=== PATIENT | male | born 1940 | race Asian ===

== ENCOUNTER 2019-07-02 09:37 | Inpatient (IN) | payer MEDICARE, MEDICAID ==
[~2019-07-02] VITALS: Ht 172.7 cm; Wt 58.5 kg
[2019-07-02] MEDS ORDERED: LORazepam Inj 2mg/ml 1ml IV ONE ×2 (09:45→13:00)
[2019-07-02 09:50] VITALS: BP 136/52
--- NOTE | 2019-07-02 09:50 | NUR ---
ED Nurse Note: Patient brought in by ambulance from [facility] due to SOB. pt was having severe SOB upon arrival but per EMS, severe SOB just started 5 minutes prior to arrival and pt was stable until then. pt aao x1 to name only and having agitation, confusion, restlessness. h/o CVA and Rt side weakness noted. Rt hand edema noted. per pt, he broke it last year but pt is aao x1 and unable to provide more details.
--- NOTE | 2019-07-02 09:50 | NUR ---
ED Nurse Note: unable to do ekg at this time due to pt's behavior. will try after med give.
--- NOTE | 2019-07-02 09:55 | NUR ---
ED Nurse Note: ERMD at bedside and ordered Bipap. pt is in gown and on diagnostic cardiac sonographer. tachycardia, SOB, labored breathing and restlessness noted.
--- NOTE | 2019-07-02 10:00 | NUR ---
ED Nurse Note: pt refused Bipap. pt took it out, threw it out, and screamed. no violent behavior but severe agitation.
--- NOTE | 2019-07-02 10:13 | Diagnostic Imaging Report ---
EXAM: XR Chest, 1 View CLINICAL HISTORY: SOB TECHNIQUE: Frontal view of the chest. COMPARISON: No relevant prior studies available. FINDINGS: Lungs: Unremarkable. No consolidation. Pleural space: Unremarkable. No pneumothorax. Heart: Borderline cardiomegaly. Mediastinum: Aortic ossification. Bones/joints/soft tissues: Operative changes to the soft tissues of the neck.. IMPRESSION: No evidence of acute pulmonary disease
--- NOTE | 2019-07-02 10:15 | NUR ---
ED Nurse Note: per BRADLEY, Ativan IM is ok due to severe agitation and confusion.
[2019-07-02] MEDS ORDERED: AMLODIPINE BESYL5 MG ORAL (10:39)
[2019-07-02] MEDS ORDERED: METOPROLOL TART50 MG ORAL (10:39)
[2019-07-02] MEDS ORDERED: ATIVAN1 MG ORAL (10:39)
[2019-07-02] MEDS ORDERED: DOCUSATE SODIU100 MG ORAL (10:39)
[2019-07-02] MEDS ORDERED: INSULIN LI100 UNIT/1 SQ (10:39)
[2019-07-02] MEDS ORDERED: FUROSEMIDE40 MG ORAL (10:39)
[2019-07-02] MEDS ORDERED: ASPIR 8181 MG ORAL (10:39)
[2019-07-02] MEDS ORDERED: MAGNESIUM OXID400 M1 ORAL (10:39)
[2019-07-02] MEDS ORDERED: HYDROCORTISONE28 G2 TP (10:39)
[2019-07-02] MEDS ORDERED: B COMPLEX1 EACH ORAL (10:39)
[2019-07-02] MEDS ORDERED: LANTUS SOL100 UNIT/1 SUBQ (10:39)
[2019-07-02] MEDS ORDERED: TRAMADOL HCL50 MG ORAL (10:39)
[2019-07-02] MEDS ORDERED: METAMUCIL PACK1 EAC1 ORAL (10:39)
[2019-07-02] MEDS ORDERED: FISH OIL CAP1000 MG ORAL (10:39)
[2019-07-02] MEDS ORDERED: MIRALAX17 GM ORAL (10:39)
[2019-07-02] MEDS ORDERED: ZETIA10 MG ORAL (10:39)
[2019-07-02] MEDS ORDERED: MULTI VITAMIN1 EACH ORAL (10:39)
[2019-07-02] MEDS ORDERED: ZINC SULFATE220 M1 ORAL (10:39)
[2019-07-02] MEDS ORDERED: ELIQUIS2.5 MG PO (10:39)
[2019-07-02] MEDS ORDERED: ATORVASTATIN CA40 MG ORAL (10:39)
--- NOTE | 2019-07-02 10:42 | NUR ---
ED Nurse Note: pt is calmer but still slightly tachycardia at 101-102/min
[2019-07-02 11:05] LABS: BASOPHILS % (AUTO) 0.4 % (0.0-2.0); EOSINOPHILS % (AUTO) 0.2 % (0.0-3.0); HEMATOCRIT 38.5 % (42.0-52.0); HEMOGLOBIN 13.1 G/DL (14.2-18.0); LYMPHOCYTES % (AUTO) 11.9 % (20.0-45.0); MEAN CORPUSCULAR VOLUME 87 FL (80-99); MONOCYTES % (AUTO) 6.6 % (1.0-10.0); NEUTROPHILS % (AUTO) 80.9 % (45.0-75.0); PLATELET COUNT 183 K/UL (150-450); RED CELL DISTRIBUTION WIDTH 12.5 % (11.6-14.8); WHITE BLOOD COUNT 6.9 K/UL (4.8-10.8)
[2019-07-02 11:14] LABS: ANION GAP 15 mmol/L (5-15); BLOOD UREA NITROGEN 21 mg/dL (7-18); CALCIUM 9.4 MG/DL (8.5-10.1); CARBON DIOXIDE 25 MMOL/L (21-32); CHLORIDE 101 MMOL/L (98-107); CREATININE 1.5 MG/DL (0.55-1.30); POTASSIUM 3.4 MMOL/L (3.5-5.1); SODIUM 140 MMOL/L (136-145)
--- NOTE | 2019-07-02 11:14 | Emergency Room Report ---
History of Present Illness General Chief Complaint: Upper Respiratory Illness Source: Medical Record Present Illness HPI 78-year-old male presents ED for shortness of breath. resides in SNF. Started today. Per EMS O2 sats low. Given breathing treatments. Arrival patient appears anxious. States he wants to go to [facility]. Denies chest pain. Was started on antibiotics yesterday for presumed pneumonia. Denies fevers or chills. Denies sick contacts or recent travel. No other aggravating relieving factors. Denies any other associated symptoms COVID-19 risk:Contact w/high r: No COVID-19 risk:Travel to affect: No Has patient experienced james: No Allergies: Coded Allergies: No Known Allergies (Unverified , 07/02/19) Patient History Past Medical History: CHF, AFib, CVA/TIA Past Surgical History: none Pertinent Family History: none Social History: Denies: smoking, alcohol use, drug use Immunizations: UTD Reviewed Nursing Documentation: PMH: Agreed; PSxH: Agreed Nursing Documentation-PMH Past Medical History: No History, Except For Hx Cardiac Problems: Yes - HF, hyperlipidemia, a-fib Hx Pacemaker: Yes Hx Diabetes: Yes Hx Cerebrovascular Accident: Yes - right side weakness Review of Systems All Other Systems: negative except mentioned in HPI Physical Exam Vital Signs Date Time Temp Pulse Resp B/P (MAP) Pulse Ox O2 Delivery O2 Flow Rate FiO2 07/02/19 09:37 98.8 62 20 122/50 (74) 100 Room Air 07/02/19 09:50 3.0 Sp02 EP Interpretation: reviewed, normal General Appearance: alert, GCS 15, non-toxic, mild distress Head: normocephalic, atraumatic Eyes: bilateral eye normal inspection, bilateral eye PERRL ENT: hearing grossly normal, normal pharynx, no angioedema, normal voice Neck: full range of motion, supple/symm/no masses Respiratory: chest non-tender, lungs clear, normal breath sounds, speaking full sentences Cardiovascular #1: regular rate, rhythm, no edema Cardiovascular #2: 2+ carotid (R), 2+ carotid (L), 2+ radial (R), 2+ radial (L) , 2+ dorsalis pedis (R), 2+ dorsalis pedis (L) Gastrointestinal: normal bowel sounds, non tender, soft, non-distended, no guarding, no rebound Rectal: deferred Genitourinary: normal inspection, no CVA tenderness Musculoskeletal: back normal, normal range of motion, gait/station normal, non- tender Neurologic: alert, motor strength/tone normal, oriented x3, sensory intact, responsive, speech normal Psychiatric: judgement/insight normal, memory normal, no suicidal/homicidal ideation, anxious Reflexes: 3+ bicep (R), 3+ bicep (L), 3+ tricep (R), 3+ tricep (L), 3+ knee (R) , 3+ knee (L) Skin: other - see nursing skin notes Lymphatic: no adenopathy Medical Decision Making Diagnostic Impression: Primary Impression: Respiratory distress Additional Impression: Elevated troponin ER Course Hospital Course 78-year-old male presents ED complaining of shortness of breath, respiratroy disterss Differential diagnoses include: WI/unstable angina, contusion, muscle strain, PTX, rib fracture Clinical course Patient placed on stretcher. on night monitor. After initial history and physical I ordered labs, EKG, chest x-ray, BIPAP, ativan Refused BiPAP labs reviewed- no leukocytosis, hemoglobin/hematocrit stable, BUN/creatinine elevated, glucose 327, troponins 0.216, BNP greater than 3000, doppler US - negative for DVT Chest x-ray- no acute process EKG - NSr, no acute ischemic changes interpreted by me Antibiotics given. patient resting comfortably after ativan. given aspirin. given insulin Case discussed with Dr. Brunson and he agreed to accept the patient to his service for further care and support I. I feel this is a highly complex case requiring extensive working including EKG/Rhythm strip, Xray/CT/US, Blood/urine lab work, repeat exams while in ED, and administration of strong opiates/narcotics for pain control, admission to hospital or close patient follow up. Diagnosis - respiratory distress, elevated troponin admitted to telemetry in serious condition Labs Test 07/02/19 10:30 07/02/19 11:15 07/02/19 12:25 White Blood Count 6.9 K/UL (4.8-10.8) Red Blood Count 4.40 M/UL (4.70-6.10) Hemoglobin 13.1 G/DL (14.2-18.0) Hematocrit 38.5 % (42.0-52.0) Mean Corpuscular Volume 87 FL (80-99) Mean Corpuscular Hemoglobin 29.7 PG (27.0-31.0) Mean Corpuscular Hemoglobin Concent 34.0 G/DL (32.0-36.0) Red Cell Distribution Width 12.5 % (11.6-14.8) Platelet Count 183 K/UL (150-450) Mean Platelet Volume 7.6 FL (6.5-10.1) Neutrophils (%) (Auto) 80.9 % (45.0-75.0) Lymphocytes (%) (Auto) 11.9 % (20.0-45.0) Monocytes (%) (Auto) 6.6 % (1.0-10.0) Eosinophils (%) (Auto) 0.2 % (0.0-3.0) Basophils (%) (Auto) 0.4 % (0.0-2.0) Sodium Level 140 MMOL/L (136-145) Potassium Level 3.4 MMOL/L (3.5-5.1) Chloride Level 101 MMOL/L (98-107) Carbon Dioxide Level 25 MMOL/L (21-32) Anion Gap 15 mmol/L (5-15) Blood Urea Nitrogen 21 mg/dL (7-18) Creatinine 1.5 MG/DL (0.55-1.30) Estimat Glomerular Filtration Rate 45.5 mL/min (>60) Glucose Level 327 MG/DL (74-106) Lactic Acid Level 3.50 mmol/L (0.4-2.0) 2.10 mmol/L (0.66-2.22) Calcium Level 9.4 MG/DL (8.5-10.1) Total Bilirubin 0.8 MG/DL (0.2-1.0) Aspartate Amino Transf (AST/SGOT) 24 U/L (15-37) Alanine Aminotransferase (ALT/SGPT) 28 U/L (12-78) Alkaline Phosphatase 84 U/L (46-116) Troponin I 0.216 ng/mL (0.000-0.056) Pro-B-Type Natriuretic Peptide 3372 pg/mL (0-125) Total Protein 6.8 G/DL (6.4-8.2) Albumin 3.7 G/DL (3.4-5.0) Globulin 3.1 g/dL Albumin/Globulin Ratio 1.2 (1.0-2.7) Urine Color Pale yellow Urine Appearance Clear Urine pH 7 (4.5-8.0) Urine Specific [place] 1.010 (1.005-1.035) Urine Protein 2+ (NEGATIVE) Urine Glucose (UA) 4+ (NEGATIVE) Urine Ketones Negative (NEGATIVE) Urine Blood 2+ (NEGATIVE) Urine Nitrite Negative (NEGATIVE) Urine Bilirubin Negative (NEGATIVE) Urine Urobilinogen Normal MG/DL (0.0-1.0) Urine Leukocyte Esterase Negative (NEGATIVE) Urine RBC 5-10 /HPF (0 - 0) Urine WBC 0-2 /HPF (0 - 0) Urine Squamous Epithelial Cells None /LPF (NONE/OCC) Urine Bacteria Occasional /HPF (NONE) EKG Diagnostic Results Rate: normal Rhythm: NSR ST Segments: no acute changes ASA given to the pt in ED: Yes Rhythm Strip Diag. Results EP Interpretation: yes Rhythm: NSR, no PVC's, no ectopy Chest X-Ray Diagnostic Results Chest X-Ray Diagnostic Results : Chest X-Ray Ordered: Yes # of Views/Limited/Complete: 1 View Indication: Shortness of Breath EP Interpretation: Yes Interpretation: no consolidation, no effusion, no pneumothorax, no acute cardiopulmonary disease Impression: No acute disease Electronically Signed by: Electronically signed by Delon Floyd MD Last Vital Signs Date Time Temp Pulse Resp B/P (MAP) Pulse Ox O2 Delivery O2 Flow Rate FiO2 07/02/19 09:50 122 18 Nasal Cannula 3.0 07/02/19 09:50 98.8 136/52 100 Status: improved Disposition: ADMITTED INPATIENT Condition: Serious Referrals: Bj Brunson MD (PCP) Delon Floyd MD Jul 02, 2019 11:14
[2019-07-02 11:25] LABS: ALANINE AMINOTRANSFERASE 28 U/L (12-78); ALBUMIN 3.7 G/DL (3.4-5.0); ALBUMIN/GLOBULIN RATIO 1.2 (1.0-2.7); ALKALINE PHOSPHATASE 84 U/L (46-116); ASPARTATE AMINO TRANSFERASE 24 U/L (15-37); BILIRUBIN,TOTAL 0.8 MG/DL (0.2-1.0)
[2019-07-02 11:56] LABS: APPEARANCE,URINE CLEAR; BILIRUBIN, URINE NEGATIVE (NEGATIVE); COLOR,URINE PALE YELLOW; GLUCOSE, URINE (UA) 4+ (NEGATIVE); KETONES,URINE NEGATIVE (NEGATIVE); LEUKOCYTE ESTERASE ,URINE NEGATIVE (NEGATIVE); NITRITE,URINE NEGATIVE (NEGATIVE); PH,URINE 7 (4.5-8.0); PROTEIN,URINE 2+ (NEGATIVE); UROBILINOGEN,URINE NORMAL MG/DL (0.0-1.0)
--- NOTE | 2019-07-02 12:58 | NUR ---
ED Nurse Note: report given to SUAD Franklin
[2019-07-02] MEDS ORDERED: Insulin Human Regular 100units/ml 3ml IV ONE (13:00)
--- NOTE | 2019-07-02 13:20 | NUR ---
NURSE NOTES: pt admitted to tele unit in stable condition. hvac operations technician on pt is not complaining of any chest pain or SOB. Bed in lowest position and locked. Rails up x2 bed alarm on for safety. pt very agitated wanting to go home and keep trying to get out of bed. V/s 151/93 HR 99 R 20 T 96.6. belonging sheet was verified by charge nurse. pt unable to sign for belonging. Waiting for doctor's orders.
--- NOTE | 2019-07-02 13:34 | NUR ---
ED Nurse Note: pt transferred to telemetry unit with 1 RN and 1 CARPENTER ASSEMBLER with security monitor on in stable condition.
--- NOTE | 2019-07-02 14:40 | NUR ---
RESPIRATORY NOTE: ABG was placed on hold by MARGARETTE Floyd
[2019-07-02] MEDS ORDERED: LORazepam Inj 2mg/ml 1ml IV SCH (15:00)
[2019-07-02] MEDS ORDERED: Albuterol/Ipratropium 3ml neb HHN PRN (15:45)
[2019-07-02] MEDS: NovoLOG Insulin Flexpen SUBQ SCH ×2 (16:30→21:00)
[2019-07-02] MEDS: Docusate 100mg cap ORAL SCH (18:37)
[2019-07-02] MEDS: Eliquis 2.5mg tablet ORAL SCH (18:37)
--- NOTE | 2019-07-02 18:43 | NUR ---
NURSE NOTES: notified doct Boy pt is tachycardic 130-150. Waiting for new orders
--- NOTE | 2019-07-02 18:47 | NUR ---
NURSE NOTES: reported to doctor Migue pt is very agitated and she ordered Risperdal po 1mg QHS, and she is ok with Ativan 1mg po q 4hrs that doct. Brunson has ordered.
--- NOTE | 2019-07-02 19:29 | NUR ---
HAND-OFF: Report given to Fern/SUAD pt is in bed starting to get agitated. Pt relaxes when Azeri relaxing music is playing.
--- NOTE | 2019-07-02 19:47 | NUR ---
NURSE NOTES: Received report from Noemi Monsalve RN. Pt is in stable condition.
[2019-07-02 20:00] VITALS: BP 153/99
[2019-07-02] MEDS: Atorvastatin 80mg tab ORAL SCH (21:54)
[2019-07-02] MEDS: Metoprolol Tartrate 50mg tab ORAL SCH (21:55)
[2019-07-02] MEDS: Levemir Flexpen SUBQ SCH (22:06)
[2019-07-03] VITALS: BP 159/69
[2019-07-03] MEDS ORDERED: Metoprolol Tartrate 5mg/5ml Inj IVPB ONE (01:15)
--- NOTE | 2019-07-03 02:00 | Consultation ---
DATE OF CONSULTATION: 07/02/2019 CARDIOLOGY CONSULTATION CONSULTING PHYSICIAN: Joshua Campbell M.D. REQUESTING PHYSICIAN: Bj Brunson M.D. REASON FOR CONSULTATION: Rapid atrial fibrillation and congestive heart failure. HISTORY OF PRESENT ILLNESS: This is a 78-year-old male, who resides at a [place] [facility]. He was transferred to the emergency room for evaluation of shortness of breath. He was noted to be hypoxic. He apparently had some abnormal breath sounds and was given inhaled bronchodilator treatments. He denied chest pain. He has been on antimicrobials as an outpatient for about a day for a presumed pneumonia. He denies having any fevers or chills. No any other risk factors for COVID other than his residence at a [place] [facility]. The patient was seen in the emergency room. Diagnostic workup was obtained. Concern over acute congestive heart failure. A rapid atrial arrhythmias has prompted this consultation. PAST MEDICAL HISTORY: 1. History of cerebrovascular accident. 2. Paroxysmal atrial fibrillation. 3. Hypertension. 4. Congestive heart failure. 5. Right hemiparesis. 6. Type 2 diabetes mellitus. 7. Permanent pacemaker. 8. Hx of carotid endarterectomy. ALLERGIES: None. FAMILY HISTORY: Noncontributory. SOCIAL HISTORY: Negative for smoking, alcohol, or substance abuse. REVIEW OF SYSTEMS: A 10-point review of systems performed and limited data is available from the patient. Records are reviewed and pertinent data as outlined above. PHYSICAL EXAMINATION: VITAL SIGNS: Blood pressure 136/52, pulse 122, respirations 18, and afebrile. NECK: Jugular venous pressure is elevated. LUNGS: Few rales. HEART: Irregularly irregular rhythm. Normal S1, S2. A 1/6 systolic murmur at apex. ABDOMEN: Soft and nontender. EXTREMITIES: Trace edema. NEUROLOGIC: Right-sided weakness is noted. LABORATORY DATA: Sodium 140, potassium 3.4, bicarb 25, BUN 21, creatinine 1.5, and glucose 327. Lactic acid 3.5, repeated 2.1. Troponin 0.216. Pro-natriuretic peptide 3372. White count is 6.9 and hemoglobin 13.1. IMPRESSION: 1. Acute diastolic congestive heart failure. 2. Paroxysmal atrial fibrillation with rapid ventricular response. 3. Acute myocardial ischemia and possible non-ST elevation myocardial infarction. 4. Hypokalemia. 5. History of hyperlipidemia, on very high-dose statin combination drugs. 6. Lactic acidosis. 7. Type 2 diabetes mellitus with glucose uncontrolled. 8. Acute on chronic kidney disease. 9. Hypertensive heart disease with controlled blood pressure. PLAN: 1. Cardiac monitoring. 2. Serial troponins. 3. Beta-blockade for antianginal benefit and rate control. 4. Consider adding digoxin if needed. 5. Check echocardiogram. 6. Cautious diuresis. 7. Replace potassium. 8. Check magnesium. 9. Continue full anticoagulation for cardioembolic prophylaxis. 10. Will try to find out type of pacemaker, and interrogate device. 11. Further recommendations will follow once echocardiogram is obtained. Joshua Campbell M.D. DR: PIEDAD JOB#: [id number] CC: JEREMIAH
[2019-07-03 04:00] VITALS: BP 116/74
[2019-07-03] MEDS: NovoLOG Insulin Flexpen SUBQ SCH ×4 (06:30→21:33)
--- NOTE | 2019-07-03 07:35 | NUR ---
NURSE NOTES: Received report from SUAD Landaverde. Patient in bed resting, no active s/s cardiac, respiratory distress noticed at this time. Patient AOx1-2, A.fib, V-paced with HR 75. Endorsed patient was agitated, on bilateral soft wrist restraints, cap refill <3, able to move. IV on left AC 22G, asymptomatic, patent, intact. Bed in lowest position, side rails upx3, call light within reach, bed alarm on. Will continue to monitor.
--- NOTE | 2019-07-03 07:47 | NUR ---
NURSE NOTES: Received report from Lorenzo Lee RN. Pt is in stable condition. Addendum: 07/03/19 at 0748 by Saima Nance RN Hand off given to Lorenzo Lee RN
[2019-07-03 08:00] VITALS: BP 104/65
[2019-07-03] MEDS: Aspirin EC 81mg tab ORAL SCH (08:27)
[2019-07-03] MEDS: Docusate 100mg cap ORAL SCH ×2 (08:27→17:07)
[2019-07-03] MEDS: Zinc Sulfate 220mg cap ORAL SCH (08:27)
[2019-07-03] MEDS: Eliquis 2.5mg tablet ORAL SCH ×2 (08:27→17:07)
[2019-07-03] MEDS: Miralax 17gm pkt ORAL SCH (08:27)
[2019-07-03] MEDS: Levemir Flexpen SUBQ SCH ×2 (08:39→21:34)
[2019-07-03] MEDS: Metoprolol Tartrate 50mg tab ORAL SCH ×2 (08:45→21:51)
[2019-07-03] MEDS ORDERED: Furosemide 40mg tab ORAL SCH (09:00)
--- NOTE | 2019-07-03 11:30 | History and Physical Report ---
DATE OF ADMISSION: 07/02/2019 CHIEF COMPLAINT: Shortness of breath. HISTORY OF PRESENT ILLNESS: The patient is a 78-year-old male, well known to me. He has a history of stroke, diabetes, hypertension, hyperlipidemia. He has a prior history of carotid endarterectomy. He was recently admitted to an outside hospital and [facility] after a subacute stroke. Over the last several days, he has had intermittent episodes of chest pain and shortness of breath. Chest x-ray done at the hospital did reveal an infiltrate. The patient was started on antibiotic therapy. On the day of transfer, he again complained of shortness of breath, was noted to be hypoxic. He was transferred to the emergency room. On evaluation there, his x-ray was negative. He did have elevated lactic acid level. He initially was placed on BiPAP and is now admitted for further evaluation and care. PAST MEDICAL HISTORY: As above. PAST SURGICAL HISTORY: Includes carotid endarterectomy. CURRENT MEDICATIONS: Reconciled and reviewed. ALLERGIES: None. FAMILY HISTORY: None. SOCIAL HISTORY: There is no known history of tobacco, ethanol, or drugs. REVIEW OF SYSTEMS: GENERAL: Positive fevers, but no chills. HEENT: No headaches or visual changes. CARDIOPULMONARY: Positive chest pain, shortness of breath, mild cough. GASTROINTESTINAL: No nausea or vomiting. GENITOURINARY: No urgency or frequency. MUSCULOSKELETAL: No joint pain or swelling. NEUROLOGIC: No evidence of seizures. Positive history of stroke. PHYSICAL EXAMINATION: VITAL SIGNS: Temperature 98 degrees, pulse 60, respirations 20, and blood pressure 122/50. GENERAL: The patient is a thin elderly male, in no apparent distress. HEART: Regular rate and rhythm. LUNGS: Clear. ABDOMEN: Soft, nontender, nondistended. EXTREMITIES: Without clubbing, cyanosis, or edema. LABORATORY DATA: White count of 7, hemoglobin 13. Sodium 140, potassium 3.4. Lactic acid level was 3.5. Troponin was 0.216. Chest x-ray per report was clear. ASSESSMENT: This is a 78-year-old male with history of diabetes, stroke, hypertension, admitted with complaints of shortness of breath, unclear etiology. He does have elevated troponin and shortness of breath, may be his anginal equivalent. He did have evidence of pneumonia on x-ray done just several days hospital. He has been on antibiotics at the retirement. PLAN: 1. We will continue IV antibiotic therapy. 2. Monitor chest x-ray. 3. Cardiology consultation. 4. Antiplatelet therapy. 5. Continue supplemental oxygen, breathing treatments. 6. Psychiatry consultation has also been obtained to assist with the patient's anxiety and agitation. Bj Brunson M.D. DR: OLENA JOB#: [id number] CC:
[2019-07-03 12:00] VITALS: BP 102/40
--- NOTE | 2019-07-03 13:43 | NUR ---
RD ASSESSMENT & RECOMMENDATIONS SEE CARE ACTIVITY FOR COMPLETE ASSESSMENT DAILY ESTIMATED NEEDS: Needs based on underweight, DM 57.2kg 30-35 kcals/kg 3211-2173 total kcals 1-1.5 g protein/kg 57-86 g total protein Fluid per MD, elev BNP NUTRITION DIAGNOSIS: Increased kcal and pro needs r/t underweight status as evidenced by pt at 82% of [place] Body Weight w/ generalized moderate to severe wasting. PO DIET RECOMMENDATIONS: CCHO MED diet / texture per PAYROLL AUDITOR. ADDITIONAL RECOMMENDATIONS: 1) RE-calibrate bed scale for accurate CBW 2) monitor BG, need for increased coverage 3) Add GLUCERNA 1 tetra BID in b/w meals 4) PAYROLL AUDITOR eval for texture, h/o CVA
[2019-07-03 14:59] LABS: BASOPHILS % (AUTO) 0.4 % (0.0-2.0); EOSINOPHILS % (AUTO) 0.5 % (0.0-3.0); LYMPHOCYTES % (AUTO) 11.6 % (20.0-45.0); MEAN CORPUSCULAR VOLUME 88 FL (80-99); MONOCYTES % (AUTO) 6.2 % (1.0-10.0); NEUTROPHILS % (AUTO) 81.3 % (45.0-75.0); PLATELET COUNT 179 K/UL (150-450); RED BLOOD COUNT 4.33 M/UL (4.70-6.10); RED CELL DISTRIBUTION WIDTH 12.7 % (11.6-14.8); WHITE BLOOD COUNT 10.9 K/UL (4.8-10.8)
--- NOTE | 2019-07-03 15:03 | NUR ---
NURSE NOTES: Per brandon Lau to continue hydrocortisone on bilateral heels and elbows. Order noted, entered, carried out, informed Alaina Hobson.
[2019-07-03 15:18] LABS: ALANINE AMINOTRANSFERASE 28 U/L (12-78); ALBUMIN 3.3 G/DL (3.4-5.0); ALBUMIN/GLOBULIN RATIO 1.4 (1.0-2.7); ALKALINE PHOSPHATASE 73 U/L (46-116); ANION GAP 12 mmol/L (5-15); ASPARTATE AMINO TRANSFERASE 34 U/L (15-37); BILIRUBIN,TOTAL 0.7 MG/DL (0.2-1.0); BLOOD UREA NITROGEN 18 mg/dL (7-18); CALCIUM 9.1 MG/DL (8.5-10.1); CARBON DIOXIDE 23 MMOL/L (21-32); CHLORIDE 110 MMOL/L (98-107); CREATININE 1.2 MG/DL (0.55-1.30); POTASSIUM 4.6 MMOL/L (3.5-5.1); SODIUM 145 MMOL/L (136-145)
[2019-07-03] MEDS: LORazepam Inj 2mg/ml 1ml IV PRN (15:21)
--- NOTE | 2019-07-03 15:25 | NUR ---
NURSE NOTES: Notified Hae about slightly elevated troponin of 0.267
[2019-07-03 15:49] LABS: CHOLESTEROL 101 MG/DL (< 200); HDL CHOLESTEROL 54 MG/DL (40-60); TRIGLYCERIDES 69 MG/DL (30-150)
--- NOTE | 2019-07-03 15:53 | NUR ---
NURSE NOTES: Paged Dr. Campbell and made aware regarding elevation in troponin. No new order received at this time. Will continue to monitor.
[2019-07-03 16:00] VITALS: BP 112/68
[2019-07-03] MEDS: Hydrocortisone 1% Cr TOPIC SCH (17:04)
--- NOTE | 2019-07-03 19:13 | NUR ---
HAND-OFF: Report given to Valerie Esquivel RN. Endorsed plan of care.
--- NOTE | 2019-07-03 19:14 | NUR ---
NURSE NOTES: received pt from Lorenzo BORJAS., pt is awake and AOx1 at this moment. pt is French speaker, and no SOB in RA. pt states no pain at this moment. Left FA 24G intact, clean, and patent. Bilateral soft restrain is on, bilateral pulse noted. multiple ecchymosis noted on hands and wrist, but no skin tear noted. call light within reach. bed at the lowest position, alarmed, and locked. will continue to monitor pt with plan of care.
[2019-07-03 20:00] VITALS: BP 101/56
[2019-07-03] MEDS: Atorvastatin 80mg tab ORAL SCH (21:37)
--- NOTE | 2019-07-03 22:14 | Progress Note ---
DATE: 07/03/2019 CARDIOLOGY PROGRESS NOTE SUBJECTIVE: The patient with slight cough and slight shortness of breath. No chest pain. He is off BiPAP, in no respiratory distress. OBJECTIVE: VITAL SIGNS: Blood pressure 122/50, pulse 60, and respirations 20. Monitored rhythm, atrial fibrillation with episodes of rapid ventricular response and otherwise paced. LUNGS: Diminished breath sounds with rhonchi. CARDIAC: Irregularly irregular rhythm. Normal S1 and S2. A 1/6 systolic murmur at apex. ABDOMEN: Soft. EXTREMITIES: No edema. LABORATORY DATA: White count 10.9, hemoglobin 13. Sodium 145, potassium 4.6, bicarb 22, BUN 18, and creatinine 1.2. Glucose 207. Troponin 0.267. Pro-natriuretic peptide is 3495. LDL cholesterol is 35, total cholesterol 101. IMPRESSION: 1. Acute coronary syndrome and possible [id number] myocardial infarction. 2. Paroxysmal atrial fibrillation with episodes of rapid ventricular response. 3. Partially treated health-care associated pneumonia. 4. Permanent pacemaker. 5. Lactic acidosis, recovered. 6. Acute on chronic diastolic congestive heart failure. PLAN: 1. Antimicrobials. 2. Cardiac monitoring. 3. Advance beta-bart for better rate control. 4. Continue anticoagulation for cardioembolic prophylaxis. 5. Respiratory hygiene. 6. Pacemaker interrogation once we can ascertain the device model. 7. Antianginal and anti-failure regimen to be optimized. Joshua Campbell M.D. DR: KANDY JOB#: [id number] CC:
--- NOTE | 2019-07-03 23:59 | Consultation ---
DATE OF CONSULTATION: 07/03/2019 CONSULTING PHYSICIAN: Shaye Benitez M.D. HISTORY OF PRESENT ILLNESS: This is a 78-year-old male with a history of multiple medical issues including stroke, diabetes,, hypertension, dementia, hyperlipidemia who presented to the hospital for shortness of breath. The patient is more confused. The patient is agitated and manageable on the unit. The patient received Ativan p.r.n. PAST PSYCHIATRIC HISTORY: Dementia, psychotic disorder. PAST MEDICAL HISTORY: As above. ALLERGIES: None. SUBSTANCE ABUSE HISTORY: No known history of illicit drug use or alcohol. SOCIAL HISTORY: He is a nonsmoker. MENTAL STATUS EXAMINATION: The patient is confused, disoriented. Mood is agitated. Affect is flat. Thought process is concrete. Thought content, no suicidal or homicidal ideation. Cognition is impaired. Insight and judgment is impaired. ASSESSMENT: [place] I Acute encephalopathy, most likely toxic. Dementia. [place] II Deferred. [place] III As above. [place] IV Low. [place] V 20. PLAN: 1. Zyprexa 5 mg at bedtime. 2. Ativan p.r.n. 3. Continue to follow and readjust the medications. Sanchez Pelletier JOB#: [id number] CC:
[2019-07-04] VITALS: BP 101/56
[2019-07-04] MEDS: LORazepam Inj 2mg/ml 1ml IV PRN ×2 (00:28→20:46)
--- NOTE | 2019-07-04 01:50 | NUR ---
NURSE NOTES: cleaned pt, provided new gown, provided oral care. pt is insist fighting back to staffs, and trying to bite. call light within reach. bed at the lowest position. provided comfort measures,.
[2019-07-04 04:00] VITALS: BP 136/77
[2019-07-04] MEDS: NovoLOG Insulin Flexpen SUBQ SCH ×4 (06:23→22:13)
--- NOTE | 2019-07-04 07:00 | NUR ---
HAND-OFF: Report given to Rosa Hewitt RN., pt remains stable at this moment. endorsed plan of care.
--- NOTE | 2019-07-04 07:15 | NUR ---
NURSE NOTES: Received report from Valerie Esquivel RN. Patient in bed resting, no active s/s cardiac, respiratory distress noticed at this time. Patient on room air, A. flutter with V-paced with HR 75. IV on left AC 22G, asymptomatic, patent, intact. Bed in lowest position, side rails upx2, call light within reach, bed alarm on. Will continue to monitor.
--- NOTE | 2019-07-04 07:34 | NUR ---
NURSE NOTES: Dr. Brunson at the bedside, made aware patient today WBC elevated from 6.9 to 10.9. Addendum: 07/04/19 at 0736 by LORENZO PEREIRA RN no new order given at this time. Will continue to monitor.
[2019-07-04 08:00] VITALS: BP 140/67
[2019-07-04 08:07] LABS: ANION GAP 12 mmol/L (5-15); BLOOD UREA NITROGEN 19 mg/dL (7-18); CALCIUM 9.3 MG/DL (8.5-10.1); CARBON DIOXIDE 22 MMOL/L (21-32); CHLORIDE 109 MMOL/L (98-107); CREATININE 1.3 MG/DL (0.55-1.30); POTASSIUM 4.2 MMOL/L (3.5-5.1); SODIUM 143 MMOL/L (136-145)
--- NOTE | 2019-07-04 08:49 | General Progress Note ---
Assessment/Plan Problem List: (1) SOB (shortness of breath) ICD Codes: R06.02 - Shortness of breath SNOMED: 822807499 (2) AMI (acute myocardial infarction) ICD Codes: I21.9 - Acute myocardial infarction, unspecified SNOMED: 39843920 (3) CVA (cerebral vascular accident) ICD Codes: I63.9 - Cerebral infarction, unspecified SNOMED: 552388403 (4) Elevated troponin ICD Codes: R79.89 - Other specified abnormal findings of blood chemistry SNOMED: 318110194, 462758386, 201509456 (5) Respiratory distress ICD Codes: R06.03 - Acute respiratory distress SNOMED: 361650036 (6) Paroxysmal A-fib ICD Codes: I48.0 - Paroxysmal atrial fibrillation SNOMED: 854324911 Status: stable Assessment/Plan: stable. cont current rx antiplt rx cont bp meds anxiolytics dvt/stress ulcer prophylaxis resp care o2 Subjective ROS Limited/Unobtainable: No Constitutional: Reports: malaise, weakness HEENT: Reports: no symptoms Cardiovascular: Reports: no symptoms Respiratory: Reports: cough, shortness of breath Gastrointestinal/Abdominal: Reports: no symptoms Genitourinary: Reports: no symptoms Neurologic/Psychiatric: Reports: anxiety Endocrine: Reports: no symptoms Hematologic/Lymphatic: Reports: no symptoms Allergies: Coded Allergies: No Known Allergies (Unverified , 07/02/19) All Systems: reviewed and negative except above Subjective no events. resting. no cp/sob. intermittent agitation. not cooperative with care at time. no fever or chills. psych and cards noted. Objective Last 24 Hour Vital Signs Date Time Temp Pulse Resp B/P (MAP) Pulse Ox O2 Delivery O2 Flow Rate FiO2 07/04/19 08:00 97.3 62 18 140/67 (91) 99 07/04/19 04:00 98.0 88 18 136/77 (96) 98 07/04/19 03:30 114 07/04/19 00:00 97.5 77 18 101/56 (71) 99 07/03/19 23:48 86 07/03/19 21:51 77 121/60 07/03/19 21:00 Room Air 07/03/19 20:00 97.5 77 18 101/56 (71) 99 07/03/19 19:56 88 20 97 Room Air 21 07/03/19 19:51 125 07/03/19 17:40 92 07/03/19 16:00 97.7 85 17 112/68 (83) 99 07/03/19 12:00 97.8 72 17 102/40 (60) 98 07/03/19 12:00 82 07/03/19 09:00 Room Air 07/03/19 08:45 56 104/65 07/03/19 08:45 56 104/65 Intake and Output 07/03/19 07/04/19 19:00 07:00 Intake Total 600 ml 240 ml Output Total 650 ml Balance 600 ml -410 ml Intake Oral 600 ml 240 ml Output Urine Total 650 ml # Voids 1 4 Laboratory Tests 07/03/19 14:20: White Blood Count 10.9#H, Red Blood Count 4.33L, Hemoglobin 13.0L, Hematocrit 38.0L, Mean Corpuscular Volume 88, Mean Corpuscular Hemoglobin 30.1, Mean Corpuscular Hemoglobin Concent 34.2, Red Cell Distribution Width 12.7, Platelet Count 179, Mean Platelet Volume 8.5, Neutrophils (%) (Auto) 81.3H, Lymphocytes ( %) (Auto) 11.6L, Monocytes (%) (Auto) 6.2, Eosinophils (%) (Auto) 0.5, Basophils (%) (Auto) 0.4, Sodium Level 145, Potassium Level 4.6, Chloride Level 110H, Carbon Dioxide Level 23, Anion Gap 12, Blood Urea Nitrogen 18, Creatinine 1.2, Estimat Glomerular Filtration Rate 58.9, Glucose Level 207#H, Calcium Level 9.1, Magnesium Level 2.3, Total Bilirubin 0.7, Aspartate Amino Transf (AST /SGOT) 34, Alanine Aminotransferase (ALT/SGPT) 28, Alkaline Phosphatase 73, Troponin I 0.267H, Pro-B-Type Natriuretic Peptide 3495H, Total Protein 5.7L, Albumin 3.3L, Globulin 2.4, Albumin/Globulin Ratio 1.4, Triglycerides Level 69, Cholesterol Level 101, LDL Cholesterol 35, HDL Cholesterol 54, Cholesterol/HDL Ratio 1.9L 07/04/19 06:37: Sodium Level 143, Potassium Level 4.2, Chloride Level 109H, Carbon Dioxide Level 22, Anion Gap 12, Blood Urea Nitrogen 19H, Creatinine 1.3, Estimat Glomerular Filtration Rate 53.7, Glucose Level 215H, Calcium Level 9.3, Magnesium Level 2.2, Troponin I [Pending] Height (Feet): 5 Height (Inches): 8.00 Weight (Pounds): 110 General Appearance: WD/WN, alert, confused, thin Neck: supple, normal inspection Cardiovascular: normal rate, regular rhythm Respiratory/Chest: chest wall non-tender, lungs clear, normal breath sounds, no respiratory distress Abdomen: normal bowel sounds, non tender, soft, no organomegaly, no mass Edema: no edema noted Arm (L), no edema noted Arm (R), no edema noted Leg (L), no edema noted Leg (R), no edema noted Pedal (L), no edema noted Pedal (R), no edema noted 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
[2019-07-04] MEDS: Metoprolol Tartrate 50mg tab ORAL SCH ×2 (08:52→20:45)
[2019-07-04] MEDS: Aspirin EC 81mg tab ORAL SCH (08:53)
[2019-07-04] MEDS: Zinc Sulfate 220mg cap ORAL SCH (08:53)
[2019-07-04] MEDS: Docusate 100mg cap ORAL SCH ×2 (08:53→17:08)
[2019-07-04] MEDS: Miralax 17gm pkt ORAL SCH (08:53)
[2019-07-04] MEDS: Eliquis 2.5mg tablet ORAL SCH ×2 (08:53→17:08)
[2019-07-04] MEDS: Levemir Flexpen SUBQ SCH ×2 (08:54→22:12)
[2019-07-04] MEDS: Hydrocortisone 1% Cr TOPIC SCH ×2 (08:55→17:08)
[2019-07-04 12:00] VITALS: BP 140/76
--- NOTE | 2019-07-04 13:54 | NUR ---
NURSE NOTES: Family member, called station, eric BORJAS f Addendum: 07/04/19 at 1404 by LORENZO PEREIRA RN would like to discharge patient to [facility]. manager of maintenance, Alva called and made aware patient family member's request.
--- NOTE | 2019-07-04 15:12 | NUR ---
CASE MANAGEMENT:REVIEW 78 YR OLD MALE BIBA FROM [facility] CC; SOB..DESATURATED TO 83% ON RA SI: RESPIRATORY DISTRESS. CHF.ELEVATED TROPONIN 98.8 122 20 122/50 100% ON 3L/NC TROPONIN(+) 0.216 BNP+3372 IS: REFUSED BIPAP ASA PO IV LEVAQUIN IV INSULIN X1 IV ATIVAN X1 IV LOPRESSOR X1 IV ATIVAN CHEST XRAY BLOOD CX : TO TELEMETRY DCP: FROM [facility]
[2019-07-04 16:00] VITALS: BP 105/67
--- NOTE | 2019-07-04 16:58 | NUR ---
*-*DISCHARGE PLANNING*-* PATIENT HAS REFEREED TO: [facility] PH: [phone] FAX: [phone] FAX: [phone] WATING FOR ACCEPTANCE
--- NOTE | 2019-07-04 19:21 | NUR ---
HAND-OFF: Report given to SUAD Rome. Endorsed plan of care.
--- NOTE | 2019-07-04 19:30 | NUR ---
NURSE NOTES: Received patient from Lorenzo BORJAS. Patient in bed, on room air, no signs of respiratory distress. Bed in low position, locked, bed alarm on, call light within reach. Bilateral wrist restraints. Patient restless, calling out non sensically, moving around in bed.
[2019-07-04 20:00] VITALS: BP 123/77
--- NOTE | 2019-07-04 20:49 | NUR ---
NURSE NOTES: Patient climbing out of bed, pulling restraints. Ativan 1mg ivp administered for agitation.
[2019-07-04] MEDS ORDERED: Atorvastatin 20mg tab ORAL SCH (21:00)
[2019-07-05] VITALS: BP 128/71
--- NOTE | 2019-07-05 01:59 | Progress Note ---
DATE: 07/04/2019 SUBJECTIVE: The patient is more manageable today. Decreased agitation. The patient was in pain, received pain medication as well as olanzapine compliant. MENTAL STATUS EXAMINATION: The patient is disoriented. He has waxing and waning consciousness. Mood is neutral. Affect is flat. Thought process is concrete. Thought content, no suicidal or homicidal ideation. Cognition is impaired. Insight and judgment are impaired. ASSESSMENT: Acute encephalopathy. PLAN: 1. We will continue current medications. 2. Discussed with the nurse. Shaye Benitez M.D. DR: MARILYN JOB#: [id number] CC:
--- NOTE | 2019-07-05 03:30 | Progress Note ---
DATE: 07/04/2019 CARDIOLOGY PROGRESS NOTE SUBJECTIVE: Remains with atrial fibrillation, mostly rate controlled now. OBJECTIVE: VITAL SIGNS: Blood pressure 140/67, respirations 18, heart rate 62 to 114. She he is afebrile. GENERAL: No shortness of breath or chest pain. Agitated at times. LUNGS: Bilateral breath sounds. CARDIAC: Irregularly irregular rhythm. Normal S1 and S2. ABDOMEN: Soft. EXTREMITIES: No edema. LABORATORY DATA: Sodium 143, potassium 4.2, troponin 0.217, BUN 19, and creatinine 1.3. IMPRESSION: 1. Very low lipid parameters, on high-dose statin therapy. 2. Paroxysmal atrial fibrillation. PLAN: 1. Continue full anticoagulation. 2. Antiplatelet therapy. 3. Lower the dose of statin drug and discontinuation of Zetia. 4. Continue beta-bart for rate control. 5. Periodic diuresis based on clinical parameters. Joshua Campbell M.D. DR: MELISSA JOB#: [id number] CC:
[2019-07-05 04:00] VITALS: BP 139/81
[2019-07-05] MEDS: NovoLOG Insulin Flexpen SUBQ SCH ×4 (06:01→21:00)
[2019-07-05 06:29] LABS: BASOPHILS % (AUTO) 0.8 % (0.0-2.0); EOSINOPHILS % (AUTO) 1.7 % (0.0-3.0); HEMATOCRIT 37.4 % (42.0-52.0); HEMOGLOBIN 12.9 G/DL (14.2-18.0); LYMPHOCYTES % (AUTO) 20.2 % (20.0-45.0); MEAN CORPUSCULAR VOLUME 88 FL (80-99); MONOCYTES % (AUTO) 7.1 % (1.0-10.0); NEUTROPHILS % (AUTO) 70.2 % (45.0-75.0); PLATELET COUNT 157 K/UL (150-450); RED BLOOD COUNT 4.26 M/UL (4.70-6.10); RED CELL DISTRIBUTION WIDTH 12.7 % (11.6-14.8); WHITE BLOOD COUNT 7.7 K/UL (4.8-10.8)
[2019-07-05 06:54] LABS: ALANINE AMINOTRANSFERASE 21 U/L (12-78); ALBUMIN 3.1 G/DL (3.4-5.0); ALBUMIN/GLOBULIN RATIO 1.1 (1.0-2.7); ALKALINE PHOSPHATASE 68 U/L (46-116); ANION GAP 11 mmol/L (5-15); ASPARTATE AMINO TRANSFERASE 26 U/L (15-37); BILIRUBIN,TOTAL 0.7 MG/DL (0.2-1.0); BLOOD UREA NITROGEN 22 mg/dL (7-18); CALCIUM 9.1 MG/DL (8.5-10.1); CARBON DIOXIDE 23 MMOL/L (21-32); CHLORIDE 110 MMOL/L (98-107); CREATININE 1.2 MG/DL (0.55-1.30); POTASSIUM 4.1 MMOL/L (3.5-5.1); SODIUM 144 MMOL/L (136-145)
--- NOTE | 2019-07-05 07:47 | NUR ---
HAND-OFF: Report given to Ignacia BORJAS.
[2019-07-05 08:38] VITALS: BP 119/78
[2019-07-05] MEDS: Levemir Flexpen SUBQ SCH ×2 (09:00→20:59)
--- NOTE | 2019-07-05 09:00 | NUR ---
NURSE NOTES: Patient AOx3 with no complaints of pain and no s/sx of distress. RR even and unlabored on RA. Side rails upx2, call light within reach, bed low and locked. Will continue to monitor.
[2019-07-05] MEDS: Miralax 17gm pkt ORAL SCH (09:22)
[2019-07-05] MEDS: Zinc Sulfate 220mg cap ORAL SCH (09:22)
[2019-07-05] MEDS: Docusate 100mg cap ORAL SCH ×2 (09:22→17:07)
[2019-07-05] MEDS: Metoprolol Tartrate 50mg tab ORAL SCH ×2 (09:22→20:56)
[2019-07-05] MEDS: Aspirin EC 81mg tab ORAL SCH (09:22)
[2019-07-05] MEDS: Eliquis 2.5mg tablet ORAL SCH ×2 (09:23→17:07)
[2019-07-05] MEDS: Hydrocortisone 1% Cr TOPIC SCH ×2 (09:26→17:08)
--- NOTE | 2019-07-05 11:34 | NUR ---
*-*DISCHARGE PLANNING*-* FAMILY REQUEST PATIENT NOT TO RETURN TO [facility]. FAMILY SPECIFICALLY REQUEST [facility]. CASE MANGER SPOKE TO ANUP AT [facility] WHO STATED PATIENT WILL BE ACCEPTED TO [facility] WHEN READY FOR DISCHARGE.
[2019-07-05 12:00] VITALS: BP 108/69
--- NOTE | 2019-07-05 15:12 | General Progress Note ---
Assessment/Plan Problem List: (1) SOB (shortness of breath) ICD Codes: R06.02 - Shortness of breath SNOMED: 458962099 (2) AMI (acute myocardial infarction) ICD Codes: I21.9 - Acute myocardial infarction, unspecified SNOMED: 87794474 (3) CVA (cerebral vascular accident) ICD Codes: I63.9 - Cerebral infarction, unspecified SNOMED: 662886512 (4) Elevated troponin ICD Codes: R79.89 - Other specified abnormal findings of blood chemistry SNOMED: 036361706, 700921532, 661682019 (5) Respiratory distress ICD Codes: R06.03 - Acute respiratory distress SNOMED: 003728466 (6) Paroxysmal A-fib ICD Codes: I48.0 - Paroxysmal atrial fibrillation SNOMED: 272637881 Status: stable Assessment/Plan: stable. cont current rx antiplt rx cont bp meds trend troponin anxiolytics dvt/stress ulcer prophylaxis resp care o2 pt requesting to go [facility] Subjective ROS Limited/Unobtainable: No Constitutional: Reports: malaise, weakness HEENT: Reports: no symptoms Cardiovascular: Reports: no symptoms Respiratory: Reports: cough, shortness of breath Gastrointestinal/Abdominal: Reports: no symptoms Genitourinary: Reports: no symptoms Neurologic/Psychiatric: Reports: anxiety Endocrine: Reports: no symptoms Hematologic/Lymphatic: Reports: no symptoms Allergies: Coded Allergies: No Known Allergies (Unverified , 07/02/19) All Systems: reviewed and negative except above Subjective no events. intermittent agitation and sob. troponin remains elevated but is trending down. echo reviewed Objective Last 24 Hour Vital Signs Date Time Temp Pulse Resp B/P (MAP) Pulse Ox O2 Delivery O2 Flow Rate FiO2 07/05/19 12:00 97.9 71 20 108/69 (82) 100 07/05/19 12:00 66 07/05/19 09:23 70 119/78 07/05/19 09:22 70 119/78 07/05/19 09:00 Room Air 07/05/19 08:39 70 07/05/19 08:38 97.8 70 20 119/78 (92) 100 07/05/19 06:58 77 16 97 Room Air 21 07/05/19 04:00 96.1 71 16 139/81 (100) 98 07/05/19 04:00 76 07/05/19 03:45 78 16 99 Room Air 21 07/05/19 00:00 96.4 71 16 128/71 (90) 98 07/05/19 00:00 67 07/04/19 21:00 Room Air 07/04/19 20:45 77 123/77 07/04/19 20:00 97.3 77 16 123/77 (92) 96 07/04/19 20:00 78 07/04/19 16:00 73 07/04/19 16:00 96.8 72 18 105/67 (80) 99 Intake and Output 07/04/19 07/05/19 19:00 07:00 Intake Total 250 ml 400 ml Balance 250 ml 400 ml Intake Oral 250 ml 400 ml # Voids 1 Laboratory Tests 07/05/19 06:05: White Blood Count 7.7, Red Blood Count 4.26L, Hemoglobin 12.9L, Hematocrit 37.4L , Mean Corpuscular Volume 88, Mean Corpuscular Hemoglobin 30.4, Mean Corpuscular Hemoglobin Concent 34.6, Red Cell Distribution Width 12.7, Platelet Count 157, Mean Platelet Volume 8.5, Neutrophils (%) (Auto) 70.2, Lymphocytes (% ) (Auto) 20.2, Monocytes (%) (Auto) 7.1, Eosinophils (%) (Auto) 1.7, Basophils ( %) (Auto) 0.8, Sodium Level 144, Potassium Level 4.1, Chloride Level 110H, Carbon Dioxide Level 23, Anion Gap 11, Blood Urea Nitrogen 22H, Creatinine 1.2, Estimat Glomerular Filtration Rate 58.9, Glucose Level 93#, Calcium Level 9.1, Total Bilirubin 0.7, Aspartate Amino Transf (AST/SGOT) 26, Alanine Aminotransferase (ALT/SGPT) 21, Alkaline Phosphatase 68, Troponin I 0.193H, Pro- B-Type Natriuretic Peptide 2271H, Total Protein 5.9L, Albumin 3.1L, Globulin 2.8 , Albumin/Globulin Ratio 1.1 Height (Feet): 5 Height (Inches): 8.00 Weight (Pounds): 110 General Appearance: WD/WN, alert, confused, agitated, combative Neck: supple Cardiovascular: normal rate, regular rhythm Respiratory/Chest: chest wall non-tender, lungs clear, normal breath sounds, no respiratory distress, no accessory muscle use Abdomen: normal bowel sounds, non tender, soft, no organomegaly, no mass Edema: no edema noted Arm (L), no edema noted Arm (R), no edema noted Leg (L), no edema noted Leg (R), no edema noted Pedal (L), no edema noted Pedal (R), no edema noted 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
[2019-07-05 16:00] VITALS: BP 108/69
--- NOTE | 2019-07-05 19:15 | NUR ---
NURSE NOTES: Received patient from Susy BORJAS. Patient in bed, on room air, no signs of respiratory distress. Bed in low position, locked, bed alarm on, call light within reach. Patient is less confused, more coherent, no more restraints. Left forearm 22 gauge piv intact, dressing dry, patent, no signs of infection.
--- NOTE | 2019-07-05 19:16 | NUR ---
HAND-OFF: Report given to Wild Cruz RN. Patient stable. Plan of care endorsed.
[2019-07-05 20:50] VITALS: BP 116/77
[2019-07-05] MEDS: Atorvastatin 20mg tab ORAL SCH (20:56)
[2019-07-05] MEDS: LORazepam Inj 2mg/ml 1ml IV PRN (21:48)
--- NOTE | 2019-07-05 23:15 | Progress Note ---
DATE: 07/05/2019 SUBJECTIVE: The patient is more alert today. Able to answer the questions. He is hypertensive. No agitation noted today. MENTAL STATUS EXAMINATION: Alert and oriented times self and situation. Mood is neutral. Affect is flat. Thought process is concrete. Thought content, no suicidal or homicidal ideation. ASSESSMENT: 1. Dementia with behavior disturbance. 2. Rule out acute encephalopathy. PLAN: 1. Continue the olanzapine. 2. Discussed with the nurse. Shaye Benitez M.D. DR: ADRIANA JOB#: [id number] CC:
--- NOTE | 2019-07-05 23:54 | NUR ---
NURSE NOTES: Patient attempted to get out of bed, more confused. Instructed patient to get back in bed. Bed alarm on. Will continue to monitor.
[2019-07-06] VITALS (7 sets, daily range): BP systolic 120–154; BP diastolic 69–93
--- NOTE | 2019-07-06 00:40 | NUR ---
NURSE NOTES: Patient still restless and agitated. Sat up in bed, pulled off shirt and tele monitor. Refused to get back in bed. When told to get back in bed, patient started yelling "you kill me! you kill me!" Patient made a fist with both hands and kept getting up. [facility] staff arrived to speak with patient and calm the patient down.
--- NOTE | 2019-07-06 01:43 | NUR ---
NURSE NOTES: Patient sitting up in bed, calm, no attempts to get out of bed, eating snacks and watching tv.
--- NOTE | 2019-07-06 02:07 | NUR ---
NURSE NOTES: BP 146/70, administered lasix 20mg ivp x1 as ordered.
--- NOTE | 2019-07-06 03:00 | Progress Note ---
DATE: 07/05/2019 CARDIOLOGY PROGRESS NOTE SUBJECTIVE: The patient with episodes of agitation and shortness of breath. No chest pain. Apparently, no leg swelling. Monitored rhythm, remains atrial fibrillation with demand pacing. OBJECTIVE: VITAL SIGNS: Blood pressure 108/69, pulse 71, respirations 20, afebrile. LUNGS: Good breath sounds. No rales. CARDIAC: Irregularly irregular rhythm. Normal S1, S2. ABDOMEN: Soft. EXTREMITIES: No edema. LABORATORY DATA: White count 7.7, hemoglobin 12.9. Troponin down to 0.193. Pro-natriuretic peptide down to 2271, albumin 4.1, BUN 22, creatinine 1.2. IMPRESSION: 1. Acute myocardial infarction, [id number] type. 2. Acute on chronic diastolic congestive heart failure, improved. 3. Very low lipid panel, on high-dose statin now with lower statin dose initiated. 4. Chronic kidney disease, stable. 5. Permanent pacemaker. 6. Paroxysmal atrial fibrillation now with rate control. PLAN: 1. Full anticoagulation for cardioembolic prophylaxis. 2. Low-dose aspirin. 3. Off Zetia. 4. Continue low-dose statin. 5. Maintain beta-bart. 6. Diuresis x1 and reassess clinical parameters. Joshua Campbell M.D. DR: MANDO JOB#: [id number] CC:
[2019-07-06] MEDS: LORazepam Inj 2mg/ml 1ml IV PRN ×3 (04:38→21:20)
--- NOTE | 2019-07-06 04:40 | NUR ---
NURSE NOTES: Patient agitated, climbing out of bed again, refusing to get back in bed. Administered ativan 1mg ivp prn and applied restraints. Notified Dr. Brunson of the situation.
--- NOTE | 2019-07-06 05:10 | NUR ---
NURSE NOTES: Received orders from Dr. Brunson for restraints, and another ativan 1mg ivp now.
[2019-07-06] MEDS ORDERED: LORazepam Inj 2mg/ml 1ml IV SCH (05:15)
[2019-07-06] MEDS: NovoLOG Insulin Flexpen SUBQ SCH ×4 (06:09→21:00)
--- NOTE | 2019-07-06 06:25 | NUR ---
NURSE NOTES: Patient still agitated, kicking linen off the floor, pulling at restraints and yelling.
[2019-07-06] MEDS ORDERED: Haloperidol 5mg/ml Inj IM PRN (07:00)
--- NOTE | 2019-07-06 07:04 | General Progress Note ---
Assessment/Plan Problem List: (1) SOB (shortness of breath) ICD Codes: R06.02 - Shortness of breath SNOMED: 638581184 (2) AMI (acute myocardial infarction) ICD Codes: I21.9 - Acute myocardial infarction, unspecified SNOMED: 63026538 (3) CVA (cerebral vascular accident) ICD Codes: I63.9 - Cerebral infarction, unspecified SNOMED: 622720073 (4) Elevated troponin ICD Codes: R79.89 - Other specified abnormal findings of blood chemistry SNOMED: 886947850, 186365366, 419881859 (5) Respiratory distress ICD Codes: R06.03 - Acute respiratory distress SNOMED: 937093954 (6) Paroxysmal A-fib ICD Codes: I48.0 - Paroxysmal atrial fibrillation SNOMED: 801707387 Status: stable Assessment/Plan: stable. cont current rx antiplt rx cont bp meds trend troponin anxiolytics- haldol added psych follow up dvt/stress ulcer prophylaxis resp care o2 pt accepted to [facility]. dc planning when cleared by cardiology Subjective ROS Limited/Unobtainable: No Constitutional: Reports: malaise, weakness HEENT: Reports: no symptoms Cardiovascular: Reports: no symptoms Respiratory: Reports: cough Gastrointestinal/Abdominal: Reports: no symptoms Genitourinary: Reports: no symptoms Neurologic/Psychiatric: Reports: anxiety Endocrine: Reports: no symptoms Hematologic/Lymphatic: Reports: no symptoms Allergies: Coded Allergies: No Known Allergies (Unverified , 07/02/19) All Systems: reviewed and negative except above Subjective remains aggressive, combative and anxious. restrained for safety. screaming and yelling. no improvement with ativan. denies cp Objective Last 24 Hour Vital Signs Date Time Temp Pulse Resp B/P (MAP) Pulse Ox O2 Delivery O2 Flow Rate FiO2 07/06/19 04:00 79 07/06/19 04:00 96.8 84 16 154/93 (113) 98 07/06/19 02:06 76 146/70 (95) 07/06/19 00:00 96.4 76 16 146/87 (106) 98 07/06/19 00:00 83 07/05/19 21:58 81 16 96 Room Air 21 07/05/19 21:00 Room Air 07/05/19 20:56 84 116/77 07/05/19 20:50 96.4 84 16 116/77 (90) 97 07/05/19 20:00 73 07/05/19 16:00 97.9 7 20 108/69 (82) 100 07/05/19 16:00 71 07/05/19 12:00 97.9 71 20 108/69 (82) 100 07/05/19 12:00 66 07/05/19 09:23 70 119/78 07/05/19 09:22 70 119/78 07/05/19 09:00 Room Air 07/05/19 08:39 70 07/05/19 08:38 97.8 70 20 119/78 (92) 100 Intake and Output 07/05/19 07/06/19 19:00 07:00 Intake Total 400 ml 240 ml Output Total 1100 ml Balance 400 ml -860 ml Intake Oral 400 ml 240 ml Output Urine Total 1100 ml # Voids 3 Laboratory Tests 07/06/19 04:37: Troponin I [Pending] Height (Feet): 5 Height (Inches): 8.00 Weight (Pounds): 129 Objective General Appearance: WD/WN, alert, confused, agitated, combative Neck: supple Cardiovascular: normal rate, regular rhythm Respiratory/Chest: chest wall non-tender, lungs clear, normal breath sounds, no respiratory distress, no accessory muscle use Abdomen: normal bowel sounds, non tender, soft, no organomegaly, no mass Edema: no edema noted Arm (L), no edema noted Arm (R), no edema noted Leg (L), no edema noted Leg (R), no edema noted Pedal (L), no edema noted Pedal (R), no edema noted 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
--- NOTE | 2019-07-06 07:27 | NUR ---
NURSE NOTES: Received report from SUAD Rome. Patient in bed resting, no active s/s cardiac, respiratory distress noticed at this time. Patient AOX1-2, confused, V-paced with HR 79. Patient on room air, agitated. IV on left FA 22G, asymptomatic, need of change in dressing, will change. On Bilateral soft wrist restraints, cap refill <3 sec, able to move. Endorsed one time dose of Ativan given, MD made aware of elevated BS level. Bed in lowest position, side rails up x2, call light within reach, bed alarm on. Will continue to monitor.
--- NOTE | 2019-07-06 07:29 | NUR ---
HAND-OFF: Report given to Lorenzo BORJAS.
[2019-07-06] MEDS: Aspirin EC 81mg tab ORAL SCH (09:16)
[2019-07-06] MEDS: Hydrocortisone 1% Cr TOPIC SCH ×2 (09:17→17:07)
[2019-07-06] MEDS: Docusate 100mg cap ORAL SCH ×2 (09:17→17:07)
[2019-07-06] MEDS: Metoprolol Tartrate 50mg tab ORAL SCH ×2 (09:17→21:19)
[2019-07-06] MEDS: Eliquis 2.5mg tablet ORAL SCH ×2 (09:17→17:07)
[2019-07-06] MEDS: Miralax 17gm pkt ORAL SCH (09:17)
[2019-07-06] MEDS: Zinc Sulfate 220mg cap ORAL SCH (09:17)
[2019-07-06] MEDS: Levemir Flexpen SUBQ SCH ×2 (09:19→21:00)
[2019-07-06] MEDS ORDERED: NovoLOG Insulin Flexpen SUBQ SCH (09:30)
--- NOTE | 2019-07-06 10:01 | NUR ---
*-*DISCHARGE PLANNING*-* CLINICALS HAVE BEEN FAXED TO: [facility] P: [phone] F: [phone] WATING FOR ACCEPTANCE Addendum: 07/06/19 at 1518 by SUSANNA ESTEVEZ CM PLEASE DISREGARD THIS NOTE DOCUMENT IN ERROR Addendum: 07/06/19 at 1519 by SUSANNA ESTEVEZ CM PLEASE DISREGARD THIS MESSAGE IN ERROR
--- NOTE | 2019-07-06 10:05 | NUR ---
*-*DISCHARGE PLANNING*-* CLINICALS FAXED TO: [facility] P: [phone] F: [phone] WATING FOR ACCEPTANCE Addendum: 07/06/19 at 1521 by SUSANNA ESTEVEZ CM PLEASE DISREGARD ABOVE NOTE. DOCUMENTED IN ERROR.
--- NOTE | 2019-07-06 15:24 | NUR ---
CASE MANAGEMENT:REVIEW 07/06/19 SI: AMI. RESPIRATORY DISTRESS. PAFIB 97.6 86 16 133/71 96% ON RA TROPONIN(+) 0.158 IS: IV ATIVAN X1 IV LASIX X1 ASA PO QD LOPRESSOR PO Q12 LEVEMIR SQ Q12 ZYPREXA PO QHS ELIQUIS PO BID SS INSULIN AC+HS NORVASC PO QD : TELEMETRY STATUS DCP: FROM [facility]
--- NOTE | 2019-07-06 19:20 | NUR ---
HAND-OFF: Report given to SUAD Rajput. Endorsed plan of care.
--- NOTE | 2019-07-06 19:21 | NUR ---
NURSE NOTES: Got report from Lorenzo BORJAS. Pt in stable condition. Denies any pain. No s/s of distress or discomfort noted. Pt resting in bed comfortably. Bed in low andl locked position, call light within reach, bedside table within reach. Continue to monitor.
--- NOTE | 2019-07-06 21:00 | Progress Note ---
DATE: 07/06/2019 SUBJECTIVE: The patient was asleep, arousable. Agitation is improved. Still needs p.r.n. Ativan. MENTAL STATUS EXAMINATION: The patient is alert, disoriented. Mood is neutral. Affect is flat. Thought process is concrete. Thought content, no suicidal or homicidal ideation. Cognition is impaired. Insight and judgment is impaired. ASSESSMENT: Dementia with behavior disturbance. PLAN: 1. We will continue current psychotropic medications. 2. Continue Zyprexa. 3. Provide the patient with reality orientation. Shaye Benitez M.D. DR: SANDIP JOB#: [id number] CC:
[2019-07-06] MEDS: Atorvastatin 20mg tab ORAL SCH (21:18)
[2019-07-07] VITALS: BP 146/90
--- NOTE | 2019-07-07 03:00 | Progress Note ---
DATE: 07/06/2019 CARDIOLOGY PROGRESS NOTE SUBJECTIVE: The patient is refrained at times and he remains agitated even with lorazepam. OBJECTIVE: VITAL SIGNS: Blood pressure 154/93, pulse 84, and respirations 16. LUNGS: Bilateral breath sounds. Rhonchi. HEART: Irregularly irregular rhythm. Normal S1, S2. ABDOMEN: Soft. EXTREMITIES: No edema. LABORATORY DATA: Troponin 0.158. IMPRESSION: 1. Dementia with behavior disturbance. 2. Acute myocardial infarction. 3. Atrial fibrillation now with controlled ventricular response. 4. Hypertensive heart disease with labile blood pressure likely mood related. 5. Chronic kidney disease. 6. Permanent pacemaker. PLAN: 1. Continue titration of cardiovascular regimen. 2. Psychotropic therapy. 3. Antianginal medications. 4. Anti-lipid therapy with lowered regimen based on recent lipid panel. 5. Full anticoagulation for cardioembolic prophylaxis. 6. Insulin titration based on glucose levels. Joshua Campbell M.D. DR: PIEDAD JOB#: [id number] CC:
[2019-07-07 04:00] VITALS: BP 117/76
[2019-07-07] MEDS: NovoLOG Insulin Flexpen SUBQ SCH ×4 (06:04→21:39)
--- NOTE | 2019-07-07 07:49 | General Progress Note ---
Assessment/Plan Problem List: (1) SOB (shortness of breath) ICD Codes: R06.02 - Shortness of breath SNOMED: 317234495 (2) AMI (acute myocardial infarction) ICD Codes: I21.9 - Acute myocardial infarction, unspecified SNOMED: 47333881 (3) CVA (cerebral vascular accident) ICD Codes: I63.9 - Cerebral infarction, unspecified SNOMED: 914506703 (4) Elevated troponin ICD Codes: R79.89 - Other specified abnormal findings of blood chemistry SNOMED: 271761022, 795072993, 793085448 (5) Respiratory distress ICD Codes: R06.03 - Acute respiratory distress SNOMED: 818147833 (6) Paroxysmal A-fib ICD Codes: I48.0 - Paroxysmal atrial fibrillation SNOMED: 048886281 Status: stable Assessment/Plan: stable. cont current rx antiplt rx cont bp meds psych rx psych follow up dvt/stress ulcer prophylaxis resp care o2 pt accepted to [facility] rehab. dc planning when cleared by cardiology Subjective ROS Limited/Unobtainable: No Constitutional: Reports: malaise, weakness HEENT: Reports: no symptoms Cardiovascular: Reports: no symptoms Respiratory: Reports: no symptoms Gastrointestinal/Abdominal: Reports: no symptoms Genitourinary: Reports: no symptoms Neurologic/Psychiatric: Reports: no symptoms Endocrine: Reports: no symptoms Hematologic/Lymphatic: Reports: no symptoms Allergies: Coded Allergies: No Known Allergies (Unverified , 07/02/19) All Systems: reviewed and negative except above Subjective no events. resting. bp better controlled. trop trending down. no cp/sob. less agitated and more cooperative Objective Last 24 Hour Vital Signs Date Time Temp Pulse Resp B/P (MAP) Pulse Ox O2 Delivery O2 Flow Rate FiO2 07/07/19 04:00 97.7 72 20 117/76 (90) 97 07/07/19 04:00 77 07/07/19 00:00 97.3 97 20 146/90 (108) 99 07/06/19 21:19 81 150/75 07/06/19 21:00 Room Air 07/06/19 20:06 74 20 95 Room Air 21 07/06/19 20:00 97.0 81 20 150/75 (100) 96 07/06/19 20:00 80 07/06/19 16:00 97.0 66 16 120/71 (87) 95 07/06/19 16:00 76 07/06/19 12:00 97.6 86 16 133/71 (91) 96 07/06/19 12:00 73 07/06/19 09:17 77 126/69 07/06/19 09:17 77 126/69 07/06/19 09:00 Room Air 07/06/19 08:00 83 07/06/19 08:00 97.7 77 16 126/69 (88) 96 Intake and Output 07/06/19 07/07/19 19:00 07:00 Intake Total 720 ml Output Total 1000 ml 350 ml Balance -280 ml -350 ml Intake Oral 720 ml Output Urine Total 1000 ml 350 ml # Voids 2 Height (Feet): 5 Height (Inches): 8.00 Weight (Pounds): 129 Objective General Appearance: WD/WN, alert, confused, agitated, combative Neck: supple Cardiovascular: normal rate, regular rhythm Respiratory/Chest: chest wall non-tender, lungs clear, normal breath sounds, no respiratory distress, no accessory muscle use Abdomen: normal bowel sounds, non tender, soft, no organomegaly, no mass Edema: no edema noted Arm (L), no edema noted Arm (R), no edema noted Leg (L), no edema noted Leg (R), no edema noted Pedal (L), no edema noted Pedal (R), no edema noted 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
--- NOTE | 2019-07-07 07:52 | NUR ---
HAND-OFF: Report given to Magdalena BORJAS.
--- NOTE | 2019-07-07 07:53 | NUR ---
NURSE NOTES: Received report from SUAD Hill. Observed pt sleeping, breathing unlabored in RA. No s/sx of acute distress. Pt on B soft wrist restraints, pulses are present. Bed on lowest position, call light within reach. Will continue plan of care.
[2019-07-07 08:00] VITALS: BP 111/65
[2019-07-07] MEDS: Miralax 17gm pkt ORAL SCH (09:00)
[2019-07-07] MEDS: Aspirin EC 81mg tab ORAL SCH (09:38)
[2019-07-07] MEDS: Zinc Sulfate 220mg cap ORAL SCH (09:38)
[2019-07-07] MEDS: Hydrocortisone 1% Cr TOPIC SCH ×2 (09:39→18:00)
[2019-07-07] MEDS: Metoprolol Tartrate 50mg tab ORAL SCH ×2 (09:39→21:31)
[2019-07-07] MEDS: Docusate 100mg cap ORAL SCH ×3 (09:39→18:02)
[2019-07-07] MEDS: Eliquis 2.5mg tablet ORAL SCH ×3 (09:39→18:01)
[2019-07-07] MEDS: Levemir Flexpen SUBQ SCH ×2 (09:41→21:33)
[2019-07-07 12:00] VITALS: BP 106/68
[2019-07-07 16:00] VITALS: BP 113/72
--- NOTE | 2019-07-07 19:31 | NUR ---
HAND-OFF: Report given to SUAD Marshall. Pt in stable condition, endorsed plan of care.
[2019-07-07 20:00] VITALS: BP 147/87
--- NOTE | 2019-07-07 20:00 | NUR ---
NURSE NOTES: RECEIVED PATIENT LYING IN BED, AWAKE, ORIENTED TO SELF ONLY, REALITY ORIENTATION PROVIDED DURING CARE. DENIES PAIN. NO SIGNS AND SYMPTOMS OF ACUTE CARDIO RESPIRATORY DISTRESS/SHORTNESS OF BREATH, NOTED WITH LEFT ARM WEAKNESS. NOTED WITH BILATERAL SOFT WRIST RESTRAINTS TO PREVENT PATIENT FROM REMOVING TUBINGS/COMBATIVE TOWARD STAFF. ABDOMEN SOFT/NON DISTENDED/NON TENDER, BOWEL SOUNDS AUDIBLE IN ALL QUADRANTS, NO REPORT OF N/V/D. SIDE RAILS UP X3/BED IN LOWEST POSITION FOR SAFETY, FREQUENT ROUNDING FOR SAFETY/NEEDS. CONTINUE WITH CURRENT PLAN OF CARE. NAD.
[2019-07-07] MEDS: Atorvastatin 20mg tab ORAL SCH (21:28)
[2019-07-08] VITALS: BP 107/64
[2019-07-08 04:00] VITALS: BP 110/76
[2019-07-08] MEDS: NovoLOG Insulin Flexpen SUBQ SCH ×4 (06:11→21:30)
--- NOTE | 2019-07-08 06:15 | NUR ---
NURSE NOTES: NO SIGNIFICANT CHANGE OF CONDITION NOTED THROUGHOUT THE NIGHT. SAFETY MAINTAINED. NAD.
--- NOTE | 2019-07-08 07:32 | NUR ---
HAND-OFF: Report given to Kalyan CEJA
--- NOTE | 2019-07-08 07:40 | NUR ---
NURSE NOTES: Received report from SUAD Marshall. Observed pt sleeping, breathing even and unlabored in RA. No s/sx of acute distress. IV site on R hand 22g patent and asymptomatic. Pt on bilateral soft wrist restraints, pulses are present. Bed on lowest position, call light within reach. Will continue plan of care.
[2019-07-08 08:00] VITALS: BP 151/86
[2019-07-08] MEDS: Miralax 17gm pkt ORAL SCH (09:00)
--- NOTE | 2019-07-08 09:40 | General Progress Note ---
Assessment/Plan Problem List: (1) SOB (shortness of breath) ICD Codes: R06.02 - Shortness of breath SNOMED: 576047129 (2) AMI (acute myocardial infarction) ICD Codes: I21.9 - Acute myocardial infarction, unspecified SNOMED: 09897974 (3) CVA (cerebral vascular accident) ICD Codes: I63.9 - Cerebral infarction, unspecified SNOMED: 662752254 (4) Elevated troponin ICD Codes: R79.89 - Other specified abnormal findings of blood chemistry SNOMED: 016357578, 219507026, 969333541 (5) Respiratory distress ICD Codes: R06.03 - Acute respiratory distress SNOMED: 813503696 (6) Paroxysmal A-fib ICD Codes: I48.0 - Paroxysmal atrial fibrillation SNOMED: 035699583 Status: stable Assessment/Plan: stable. cont current rx antiplt rx cont bp meds psych rx psych follow up dvt/stress ulcer prophylaxis resp care o2 pt accepted to [facility] rehab. dc planning when cleared by cardiology Subjective ROS Limited/Unobtainable: No Constitutional: Reports: malaise, weakness HEENT: Reports: no symptoms Cardiovascular: Reports: no symptoms Respiratory: Reports: cough Gastrointestinal/Abdominal: Reports: no symptoms Genitourinary: Reports: no symptoms Neurologic/Psychiatric: Reports: anxiety, emotional problems Endocrine: Reports: no symptoms Hematologic/Lymphatic: Reports: anemia Allergies: Coded Allergies: No Known Allergies (Unverified , 07/02/19) All Systems: reviewed and negative except above Subjective no events. resting. bp better controlled. no cp/sob. less agitated and more cooperative with care Objective Last 24 Hour Vital Signs Date Time Temp Pulse Resp B/P (MAP) Pulse Ox O2 Delivery O2 Flow Rate FiO2 07/08/19 08:48 Room Air 07/08/19 08:00 97.5 75 18 151/86 (107) 96 07/08/19 04:00 74 07/08/19 04:00 96.8 72 18 110/76 (87) 97 07/08/19 00:00 70 07/08/19 00:00 97.0 75 16 107/64 (78) 95 07/07/19 21:31 83 131/80 07/07/19 21:00 Room Air 07/07/19 20:00 97.0 90 16 147/87 (107) 98 07/07/19 20:00 73 07/07/19 16:00 98.6 71 18 113/72 (86) 97 07/07/19 15:53 73 07/07/19 12:00 97.0 72 20 106/68 (81) 96 07/07/19 11:47 88 07/07/19 09:39 81 111/65 07/07/19 09:39 81 111/65 Intake and Output 07/07/19 07/08/19 19:00 07:00 Intake Total 360 ml Output Total 100 ml 600 ml Balance -100 ml -240 ml Intake Oral 360 ml Output Urine Total 100 ml 600 ml # Voids 2 # Bowel Movements 1 Height (Feet): 5 Height (Inches): 8.00 Weight (Pounds): 129 Objective General Appearance: WD/WN, alert, confused, agitated, combative Neck: supple Cardiovascular: normal rate, regular rhythm Respiratory/Chest: chest wall non-tender, lungs clear, normal breath sounds, no respiratory distress, no accessory muscle use Abdomen: normal bowel sounds, non tender, soft, no organomegaly, no mass Edema: no edema noted Arm (L), no edema noted Arm (R), no edema noted Leg (L), no edema noted Leg (R), no edema noted Pedal (L), no edema noted Pedal (R), no edema noted 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
[2019-07-08] MEDS: Zinc Sulfate 220mg cap ORAL SCH (09:47)
[2019-07-08] MEDS: Aspirin EC 81mg tab ORAL SCH (09:47)
[2019-07-08] MEDS: Docusate 100mg cap ORAL SCH ×2 (09:47→18:13)
[2019-07-08] MEDS: Hydrocortisone 1% Cr TOPIC SCH ×2 (09:48→18:13)
[2019-07-08] MEDS: Eliquis 2.5mg tablet ORAL SCH ×2 (09:48→18:13)
[2019-07-08] MEDS: Metoprolol Tartrate 50mg tab ORAL SCH ×2 (09:48→21:28)
[2019-07-08] MEDS: Levemir Flexpen SUBQ SCH ×2 (09:49→21:29)
[2019-07-08 12:00] VITALS: BP 107/76
--- NOTE | 2019-07-08 13:12 | Psych Consult Progress Note ---
Psychiatry Progress Note Psychiatry Progress Note Subjective this is the late entry due to system being down last night 07/07/2019 Medications Current Medications Medications (Trade) Dose Ordered Sig/Ravin Route PRN Reason Start Time Stop Time Status Last Admin Dose Admin Amlodipine Besylate (Norvasc) 5 mg DAILY ORAL 07/02/19 15:30 08/01/19 15:29 07/08/19 09:48 Apixaban (Eliquis) 2.5 mg BID ORAL 07/02/19 18:00 09/30/19 17:59 07/08/19 09:48 Aspirin (Ecotrin) 81 mg DAILY ORAL 07/03/19 09:00 08/17/19 08:59 07/08/19 09:47 Atorvastatin Calcium (Lipitor) 40 mg BEDTIME ORAL 07/05/19 21:00 10/03/19 20:59 07/07/19 21:28 Dextrose (Dextrose 50%) 25 ml Q30M PRN IV Hypoglycemia 07/02/19 15:30 09/30/19 15:29 Dextrose (Dextrose 50%) 50 ml Q30M PRN IV Hypoglycemia 07/02/19 15:30 09/30/19 15:29 Docusate Sodium (Colace) 100 mg TWICE A DAY ORAL 07/02/19 18:00 08/01/19 17:59 07/08/19 09:47 Haloperidol Lactate (Haldol) 5 mg TIDPRN PRN IM Agitation 07/06/19 07:00 08/20/19 06:59 07/06/19 23:21 Hydrocortisone (Hydrocortisone) 1 applic BID TOPIC 07/03/19 18:00 10/01/19 17:59 07/08/19 09:48 Insulin Aspart (NovoLOG) BEFORE MEALS AND HS SUBQ 07/02/19 16:30 09/30/19 16:29 07/08/19 12:20 Insulin Detemir (Levemir) 6 units Q12HR SUBQ 07/02/19 21:00 09/30/19 20:59 07/08/19 09:49 Lorazepam (Ativan 2mg/ml 1ml) 1 mg Q4H PRN IV For Anxiety 07/02/19 15:30 07/09/19 15:29 07/06/19 21:20 Metoprolol Tartrate (Lopressor) 50 mg EVERY 12 HOURS ORAL 07/02/19 21:00 09/30/19 20:59 07/08/19 09:48 Multivitamins (Multivitamins) 1 tab DAILY ORAL 07/03/19 09:00 08/02/19 08:59 07/08/19 09:47 Olanzapine (ZyPREXA) 5 mg QHS ORAL 07/02/19 21:00 08/16/19 20:59 07/07/19 21:31 Polyethylene Glycol (Miralax) 17 gm DAILY ORAL 07/03/19 09:00 08/02/19 08:59 07/08/19 09:00 Zinc Sulfate (Zinc Sulfate) 220 mg DAILY ORAL 07/03/19 09:00 10/01/19 08:59 07/08/19 09:47 Neurological/Psychiatric: Reports: anxiety Allergies: Coded Allergies: No Known Allergies (Unverified , 07/02/19) Objective Data Height (Feet): 5 Height (Inches): 8.00 Weight (Pounds): 129 General Appearance: alert, confused, agitated Additional Comments: He has waxing and waning consciousness. Mood is neutral. Affect is flat. Thought process is concrete. Thought content, no suicidal or homicidal ideation. Cognition is impaired. Insight and judgment are impaired. ASSESSMENT: Acute encephalopathy. PLAN: 1. continue zyprexa. 2. Discussed with the nurse. Assessment/Plan Status: stable Shaye Benitez MD Jul 08, 2019 13:12
--- NOTE | 2019-07-08 13:29 | NUR ---
RD ASSESSMENT & RECOMMENDATIONS SEE CARE ACTIVITY FOR COMPLETE ASSESSMENT DAILY ESTIMATED NEEDS: Needs based on underweight, DM 57.2kg 30-35 kcals/kg 0383-4216 total kcals 1-1.5 g protein/kg 57-86 g total protein Fluid per MD, elev BNP NUTRITION DIAGNOSIS: Increased kcal and pro needs r/t underweight status as evidenced by pt at 82% of [place] Body Weight w/ generalized moderate to severe wasting. CURRENT DIET:CCHO MED PO DIET RECOMMENDATIONS: CCHO MED diet / texture per AIR COMMODORE. ADDITIONAL RECOMMENDATIONS: 1) RE-calibrate bed scale for accurate CBW 2) monitor BG, need for increased coverage 3) Add GLUCERNA 1 tetra TID w/ meals 4) AIR COMMODORE eval for texture, h/o CVA
--- NOTE | 2019-07-08 15:13 | NUR ---
CASE MANAGEMENT:REVIEW 07/08/19 SI: AMI. RESPIRATORY DISTRESS. PAFIB 97.2 64 20 107/76 97% ON RA LAST TROPONIN(+) 0.158 IS: ASA PO QD LOPRESSOR PO Q12 LEVEMIR SQ Q12 ZYPREXA PO QHS ELIQUIS PO BID SS INSULIN AC+HS NORVASC PO QD : TELEMETRY STATUS DCP: FROM [facility] BUT DISCHARGING TO [facility] PLAN: DC SOFT WRIST RESTRAINTS
--- NOTE | 2019-07-08 15:22 | NUR ---
DISCHARGE PLANNING PATIENT IS FROM [facility]. HOWEVER PATIENT'S FAMILY IS REQUESTING A CHANGE IN SNF'S PATIENT HAS BEEN ACCEPTED TO: [facility] ROOM [facility] T: [phone] NO DISCHARGE ORDER AT THIS TIME
[2019-07-08 16:00] VITALS: BP 118/69
--- NOTE | 2019-07-08 19:47 | NUR ---
HAND-OFF: Report given to SUAD Castle. Pt in stable condition, endorsed plan of care.
--- NOTE | 2019-07-08 19:49 | NUR ---
NURSE NOTES: Receieved report from Magdalena Marcano RN. Pt is stable condition, A x O to name and place, denies any pain at this time. Bed in lowest position, call light within reach, bed alarm armed. Will continue plan of care and close monitoring.
[2019-07-08 20:00] VITALS: BP 153/84
[2019-07-08] MEDS: Atorvastatin 20mg tab ORAL SCH (21:27)
--- NOTE | 2019-07-08 22:58 | Psych Consult Progress Note ---
Psychiatry Progress Note Psychiatry Progress Note Subjective the pts mental condition is unchanged since previous encounter. the pt is stable and more manageable. no si/hi Medications Current Medications Medications (Trade) Dose Ordered Sig/Ravin Route PRN Reason Start Time Stop Time Status Last Admin Dose Admin Amlodipine Besylate (Norvasc) 5 mg DAILY ORAL 07/02/19 15:30 08/01/19 15:29 07/08/19 09:48 Apixaban (Eliquis) 2.5 mg BID ORAL 07/02/19 18:00 09/30/19 17:59 07/08/19 18:13 Aspirin (Ecotrin) 81 mg DAILY ORAL 07/03/19 09:00 08/17/19 08:59 07/08/19 09:47 Atorvastatin Calcium (Lipitor) 40 mg BEDTIME ORAL 07/05/19 21:00 10/03/19 20:59 07/08/19 21:27 Dextrose (Dextrose 50%) 25 ml Q30M PRN IV Hypoglycemia 07/02/19 15:30 09/30/19 15:29 Dextrose (Dextrose 50%) 50 ml Q30M PRN IV Hypoglycemia 07/02/19 15:30 09/30/19 15:29 Docusate Sodium (Colace) 100 mg TWICE A DAY ORAL 07/02/19 18:00 08/01/19 17:59 07/08/19 18:13 Haloperidol Lactate (Haldol) 5 mg TIDPRN PRN IM Agitation 07/06/19 07:00 08/20/19 06:59 07/06/19 23:21 Hydrocortisone (Hydrocortisone) 1 applic BID TOPIC 07/03/19 18:00 10/01/19 17:59 07/08/19 18:13 Insulin Aspart (NovoLOG) BEFORE MEALS AND HS SUBQ 07/02/19 16:30 09/30/19 16:29 07/08/19 21:30 Insulin Detemir (Levemir) 6 units Q12HR SUBQ 07/02/19 21:00 09/30/19 20:59 07/08/19 21:29 Lorazepam (Ativan 2mg/ml 1ml) 1 mg Q4H PRN IV For Anxiety 07/02/19 15:30 07/09/19 15:29 07/06/19 21:20 Metoprolol Tartrate (Lopressor) 50 mg EVERY 12 HOURS ORAL 07/02/19 21:00 09/30/19 20:59 07/08/19 21:28 Multivitamins (Multivitamins) 1 tab DAILY ORAL 07/03/19 09:00 08/02/19 08:59 07/08/19 09:47 Olanzapine (ZyPREXA) 5 mg QHS ORAL 07/02/19 21:00 08/16/19 20:59 07/08/19 21:27 Polyethylene Glycol (Miralax) 17 gm DAILY ORAL 07/03/19 09:00 08/02/19 08:59 07/08/19 09:00 Zinc Sulfate (Zinc Sulfate) 220 mg DAILY ORAL 07/03/19 09:00 10/01/19 08:59 07/08/19 09:47 Allergies: Coded Allergies: No Known Allergies (Unverified , 07/02/19) Objective Data Height (Feet): 5 Height (Inches): 8.00 Weight (Pounds): 129 General Appearance: alert, confused, agitated Behavior Mannerisms: poor eye contact Mental Status Exam - Mood: anxious Mental Status Exam - Thought P: illogical Perceptual Disturbances: hallucinations Mental Status Exam - Suicidal: not present Assessment/Plan [place] I: acute encephalopathy cont zyprexa dw nurse Status: stable Shaye Benitez MD Jul 08, 2019 22:58
[2019-07-09] VITALS: BP 103/74
--- NOTE | 2019-07-09 00:15 | Progress Note ---
DATE: 07/07/2019 CARDIOLOGY PROGRESS NOTE Late entry. SUBJECTIVE: The patient has frequent episodes of agitation. His blood pressure is better controlled. No chest pain or shortness of breath seems to be apparent. OBJECTIVE: VITAL SIGNS: Blood pressure 117/76, pulse 72, respirations 20. LUNGS: Clear. CARDIAC: Irregular. Normal S1, S2. A 1/6 systolic murmur at apex. ABDOMEN: Soft. EXTREMITIES: No edema. IMPRESSION: 1. Atrial fibrillation now rate controlled. 2. Permanent pacemaker with no signs of malfunction. 3. Insulin-requiring diabetes with fair control. 4. Dementia with agitation. 5. Imh-TI-jyaqzrxxa myocardial infarction, uncomplicated. 6. Acute on chronic diastolic congestive heart failure, clinically compensated. 7. Low lipid parameters with statin dose decreased. PLAN: 1. Continue current regimen. 2. The patient needs to be off restraints before he can go to a half-way facility. 3. We will continue titration of cardiovascular regimen and maintain cardioembolic prophylaxis with apixaban. Joshua Campbell M.D. DR: ROMY JOB#: [id number] CC:
--- NOTE | 2019-07-09 00:30 | Progress Note ---
DATE: 07/08/2019 CARDIOLOGY PROGRESS NOTE SUBJECTIVE: The patient continues to have episodes of agitation although he is more cooperative. He still is in restraints PHYSICAL EXAMINATION: VITAL SIGNS: Blood pressure 151/86, pulse 75, respiratory rate 18, afebrile. Blood pressure range 110/76 to 151/86. LUNGS: Coarse breath sounds. No wheezing. HEART: Irregularly irregular rhythm. Normal S1, S2. A 1/6 systolic murmur at apex. ABDOMEN: Soft and nontender. EXTREMITIES: No edema. IMPRESSION: 1. Non ST-elevation myocardial infarction, now clinically compensated. 2. Hypertensive heart disease with controlled blood pressure. 3. Atrial fibrillation now rate controlled. 4. Permanent pacemaker with stable function. 5. Chronic kidney disease. 6. Acute on chronic diastolic congestive heart failure now compensated. PLAN: 1. Maintain beta-bart. 2. Continue full anticoagulation. 3. Anti-failure regimen without change. 4. Taper off neuroleptics. 5. Discontinue restraints. 6. Repeat laboratory studies. 7. Discharge planning. Joshua Campbell M.D. DRRhonda Rendon JOB#: [id number] CC:
[2019-07-09 04:00] VITALS: BP 134/65
[2019-07-09] MEDS: NovoLOG Insulin Flexpen SUBQ SCH ×4 (06:33→21:21)
[2019-07-09 07:34] LABS: BASOPHILS % (AUTO) 0.4 % (0.0-2.0); EOSINOPHILS % (AUTO) 0.8 % (0.0-3.0); HEMATOCRIT 41.6 % (42.0-52.0); HEMOGLOBIN 14.1 G/DL (14.2-18.0); LYMPHOCYTES % (AUTO) 19.4 % (20.0-45.0); MEAN CORPUSCULAR VOLUME 88 FL (80-99); MONOCYTES % (AUTO) 7.2 % (1.0-10.0); NEUTROPHILS % (AUTO) 72.2 % (45.0-75.0); PLATELET COUNT 189 K/UL (150-450); RED BLOOD COUNT 4.72 M/UL (4.70-6.10); WHITE BLOOD COUNT 9.6 K/UL (4.8-10.8)
--- NOTE | 2019-07-09 07:50 | NUR ---
NURSE NOTES: Received pt in bed, awake and very confused. No c/o of pain/distress. No IV site. Side rails x 3. Bed in the lowest, locked, and alarm on. Call light within reach. Will continue to monitor
[2019-07-09 08:00] VITALS: BP 107/62
[2019-07-09 08:02] LABS: ALANINE AMINOTRANSFERASE 21 U/L (12-78); ALBUMIN 3.5 G/DL (3.4-5.0); ALBUMIN/GLOBULIN RATIO 1.1 (1.0-2.7); ALKALINE PHOSPHATASE 93 U/L (46-116); ANION GAP 9 mmol/L (5-15); ASPARTATE AMINO TRANSFERASE 23 U/L (15-37); BILIRUBIN,TOTAL 0.7 MG/DL (0.2-1.0); BLOOD UREA NITROGEN 32 mg/dL (7-18); CALCIUM 8.9 MG/DL (8.5-10.1); CARBON DIOXIDE 29 MMOL/L (21-32); CHLORIDE 102 MMOL/L (98-107); CREATININE 1.1 MG/DL (0.55-1.30); SODIUM 140 MMOL/L (136-145)
[2019-07-09] MEDS: Metoprolol Tartrate 50mg tab ORAL SCH ×2 (08:13→20:51)
[2019-07-09] MEDS: Miralax 17gm pkt ORAL SCH (08:42)
[2019-07-09] MEDS: Aspirin EC 81mg tab ORAL SCH (08:42)
[2019-07-09] MEDS: Levemir Flexpen SUBQ SCH ×2 (08:42→21:22)
[2019-07-09] MEDS: Zinc Sulfate 220mg cap ORAL SCH (08:42)
[2019-07-09] MEDS: Docusate 100mg cap ORAL SCH ×2 (08:42→17:15)
[2019-07-09] MEDS: Eliquis 2.5mg tablet ORAL SCH ×2 (08:42→17:16)
[2019-07-09] MEDS: Hydrocortisone 1% Cr TOPIC SCH ×2 (08:43→17:16)
[2019-07-09 12:00] VITALS: BP 124/57
[2019-07-09] MEDS ORDERED: OLANZAPINE5 MG ORAL (12:05)
--- NOTE | 2019-07-09 12:40 | NUR ---
NURSE NOTES: supervisor harvesting for patient was set at 1600. [facility] Brayan at [facility] states that they have no information on patient and have not heard about patient coming in. They said they'll call back once they confirm with admission
--- NOTE | 2019-07-09 13:55 | NUR ---
NURSE NOTES: follow up called made to [facility] in regards to pt admission, spoke to Brayan and she said she will call back the unit once admission confirm with the admission coordinator, message left to CM for follow up.
--- NOTE | 2019-07-09 14:24 | NUR ---
NURSE NOTES: Brayan from [facility] called back and according to her they cannot accept patient this weekend because of patient's behavior, just follow up on Thursday she said. Will notify dr Brunson.
--- NOTE | 2019-07-09 14:56 | NUR ---
NURSE NOTES: pt in bed attempting to get out of bed several times, bed alarm on, attended to his needs, reality orientation given. patient was assisted in chair, frequent visual check and fall precaution observed. patient ambulating, walking around his room, comes out of his room, unsteady gait, assisted with ambulation. patient agitated, wandering, confused, combative, security was called, assisted patient back to bed, message left to dr Benitez.
[2019-07-09] MEDS: LORazepam Inj 2mg/ml 1ml IV PRN (15:02)
[2019-07-09 16:00] VITALS: BP 112/63
--- NOTE | 2019-07-09 16:32 | NUR ---
NURSE NOTES: Dr magana returned call and was notified of pt behavior, and [facility] not able to accept pt this weekend due to pt behavior. dr magana ordered to dc heart monitor but can stay at telemetry unit.
--- NOTE | 2019-07-09 19:13 | NUR ---
HAND-OFF: Report given to SUAD Landaverde.
[2019-07-09 20:00] VITALS: BP 121/74
[2019-07-09] MEDS ORDERED: LORazepam Inj 2mg/ml 1ml IV PRN (20:15)
[2019-07-09] MEDS: Atorvastatin 20mg tab ORAL SCH (20:49)
[2019-07-09] MEDS: Haloperidol 5mg/ml Inj IM PRN (20:50)
--- NOTE | 2019-07-09 22:43 | NUR ---
NURSE NOTES: Pt refused PO meds at this time r/t agitation. Charge nurse aware. Will continue to monitor closely.
[2019-07-10] VITALS: BP 150/95
--- NOTE | 2019-07-10 01:15 | Progress Note ---
DATE: 07/09/2019 CARDIOLOGY PROGRESS NOTE SUBJECTIVE: The patient has episodes of agitation and confusion and combative behavior. Again, he has required neuroleptics to be restarted and restraints for safety. Monitored rhythm, atrial fibrillation, rate controlled. No shortness of breath noted. OBJECTIVE: VITAL SIGNS: Blood pressure 112/63, pulse 87, respiratory rate 20, afebrile, oxygen saturation 95% to 98% on room air. LUNGS: Good breath sounds. No wheezing or rales. CARDIAC: Irregularly irregular rhythm. Normal S1, S2 with a 1/6 systolic murmur at apex. ABDOMEN: Soft. EXTREMITIES: There is no edema. LABORATORY AND DIAGNOSTIC DATA: Troponin is 0.125. BUN 32, creatinine 1.1. Potassium 4. Pro-natriuretic peptide 2800. Repeat chest x-ray is pending. IMPRESSION: 1. Qch-YT-oxlusskua myocardial infarction, compensated. 2. Paroxysmal atrial fibrillation, rate controlled. 3. Dementia with confusion and agitation. 4. Hypertensive heart disease with controlled blood pressure. 5. Acute on chronic diastolic congestive heart failure, now clinically compensated. 6. Stable lipid parameters, now on lower dose of statin drug. PLAN: 1. Maintain full anticoagulation. 2. Antiplatelet therapy. 3. Low-dose statin therapy and beta-blockade. 4. Repeat chest x-ray to be reviewed. 5. We will address need for additional diuresis at that time. 6. We will continue psych therapy to improve behavior and stability for transfer to a [facility] facility. Joshua Campbell M.D. DR: ROMY JOB#: [id number] CC:
--- NOTE | 2019-07-10 03:16 | NUR ---
NURSE NOTES: Received pt from SUAD Shirley. pt is resting quietly at this time after belligerent behavior earlier- quiet now as he was given haldol and ativan. Bed is locked in lowest position, side rails x3. Bed alarm on, call light within reach, will continue to closely monitor
--- NOTE | 2019-07-10 03:21 | NUR ---
NURSE NOTES: Received report from Joce Smiley RN. Pt is in stable condition. Addendum: 07/10/19 at 0324 by Saima Nance RN Received report at 1912.
--- NOTE | 2019-07-10 03:24 | NUR ---
HAND-OFF: Report given to Ivet Cheung RN. Pt in stable condition.
--- NOTE | 2019-07-10 03:29 | Progress Note ---
DATE: 07/09/2019 SUBJECTIVE: The patient is the same. Mental condition unchanged since previous encounter. The patient is still on restraints and refused p.o. medications. MENTAL STATUS EXAMINATION: The patient is confused. Mood is agitated. Affect is flat. Thought process is concrete. Thought content, no suicidal or homicidal ideation. ASSESSMENT: Dementia with behavior disturbance. PLAN: 1. We will add Zyprexa 2.5 mg in the morning. 2. Continue the restraints. Shaye Benitez M.D. DR: Sincere JOB#: [id number] CC:
[2019-07-10 04:00] VITALS: BP 106/60
--- NOTE | 2019-07-10 05:00 | Discharge Summary ---
DATE OF ADMISSION: 07/02/2019 DATE OF DISCHARGE: 07/09/2019 ADMISSION DIAGNOSES: 1. Non-ST elevation WI. 2. History of paroxysmal atrial fibrillation. 3. History of stroke and carotid endarterectomy. 4. Hypertension. 5. Diabetes. 6. Hyperlipidemia. 7. Encephalopathy. 8. Agitation. DISCHARGE DIAGNOSES: 1. Non-ST elevation WI. 2. History of paroxysmal atrial fibrillation. 3. History of stroke and carotid endarterectomy. 4. Hypertension. 5. Diabetes. 6. Hyperlipidemia. 7. Encephalopathy. 8. Agitation. HOSPITAL COURSE: The patient was admitted with complaints of altered mental status and shortness of breath. He ruled in for WI with serial enzymes and EKGs. Cardiology and Psychiatry consultations were obtained. The patient received supplemental oxygen and breathing treatments as needed. He was continued on antiplatelet therapy as well as apixaban for stroke prophylaxis. He stabilized intermittent episodes of agitation, which improved. On discharge, the patient was stable. Family requested that he go to a [facility] discharged there and will be followed by Dr. Campbell at the intermediate facility. DISCHARGE MEDICATIONS: Please see discharge medication list for discharge medications. DIET: Cardiac diabetic diet. ACTIVITIES: Ad dannielle. Bj Brunson M.D. DR: SHARIFA JOB#: [id number] CC:
[2019-07-10] MEDS: NovoLOG Insulin Flexpen SUBQ SCH ×4 (06:15→21:06)
--- NOTE | 2019-07-10 06:17 | NUR ---
NURSE NOTES: R buttock dti , pictures taken and uploaded
--- NOTE | 2019-07-10 06:57 | NUR ---
HAND-OFF: Report given to SUAD Jimenez.
--- NOTE | 2019-07-10 07:25 | NUR ---
NURSE NOTES: Nurse report given by SUAD Chung. Patient's awake in bed, tries to climb out of bed, reoriented but unsuccessful, confused, AO x 1, mongolian speaking only. Breathing is tachypnea but unlabored, no s/s of distress or SOB. Bed low and locked, call light within reach, side rails x3, bed alarm is armed. IV is saline locked, patent and asymptomatic, secured with kerlix gauze. Will continue to monitor closely.
[2019-07-10 08:00] VITALS: BP 143/79
--- NOTE | 2019-07-10 08:31 | NUR ---
RADIOLOGY NOTE: PORTABLE CHEST X-RAY COMPLETED AT 0749 HRS. FA
[2019-07-10] MEDS: Docusate 100mg cap ORAL SCH ×2 (08:56→17:07)
[2019-07-10] MEDS: Levemir Flexpen SUBQ SCH ×2 (08:56→21:06)
[2019-07-10] MEDS: Zinc Sulfate 220mg cap ORAL SCH (08:56)
[2019-07-10] MEDS: OLANZapine 2.5mg tab ORAL SCH (08:56)
[2019-07-10] MEDS: Miralax 17gm pkt ORAL SCH (08:57)
[2019-07-10] MEDS: Eliquis 2.5mg tablet ORAL SCH ×2 (08:57→17:07)
[2019-07-10] MEDS: Metoprolol Tartrate 50mg tab ORAL SCH ×2 (08:57→21:05)
[2019-07-10] MEDS: Aspirin EC 81mg tab ORAL SCH (08:57)
[2019-07-10] MEDS: Hydrocortisone 1% Cr TOPIC SCH ×2 (09:22→18:00)
[2019-07-10 12:00] VITALS: BP 132/75
--- NOTE | 2019-07-10 12:32 | General Progress Note ---
Assessment/Plan Problem List: (1) SOB (shortness of breath) ICD Codes: R06.02 - Shortness of breath SNOMED: 216591268 (2) AMI (acute myocardial infarction) ICD Codes: I21.9 - Acute myocardial infarction, unspecified SNOMED: 38872806 (3) CVA (cerebral vascular accident) ICD Codes: I63.9 - Cerebral infarction, unspecified SNOMED: 542749562 (4) Elevated troponin ICD Codes: R79.89 - Other specified abnormal findings of blood chemistry SNOMED: 966430371, 321836297, 476573948 (5) Respiratory distress ICD Codes: R06.03 - Acute respiratory distress SNOMED: 703699156 (6) Paroxysmal A-fib ICD Codes: I48.0 - Paroxysmal atrial fibrillation SNOMED: 501626869 Status: stable Assessment/Plan: stable. cont current rx antiplt rx cont bp meds psych rx psych follow up dvt/stress ulcer prophylaxis resp care o2 Follow-up repeat chest x-ray. Discharge planning in process. Try to DC restraints. Subjective ROS Limited/Unobtainable: No Constitutional: Reports: weakness HEENT: Reports: no symptoms Cardiovascular: Reports: no symptoms Respiratory: Reports: no symptoms Gastrointestinal/Abdominal: Reports: no symptoms Genitourinary: Reports: no symptoms Neurologic/Psychiatric: Reports: anxiety Endocrine: Reports: no symptoms Hematologic/Lymphatic: Reports: no symptoms Allergies: Coded Allergies: No Known Allergies (Unverified , 07/02/19) All Systems: reviewed and negative except above Subjective no events. resting. bp better controlled. no cp/sob. less agitated and more cooperative with care The snf was unwilling to accept the patient because of behavior issues. Patient denies any chest pain. Chest x-ray results are currently pending. No fevers chills or cough. Objective Last 24 Hour Vital Signs Date Time Temp Pulse Resp B/P (MAP) Pulse Ox O2 Delivery O2 Flow Rate FiO2 07/10/19 12:00 97.7 80 20 132/75 (94) 95 07/10/19 09:00 Room Air 07/10/19 08:57 76 143/79 07/10/19 08:57 76 143/79 07/10/19 08:00 97.7 76 20 143/79 (100) 97 07/10/19 07:00 76 20 97 Room Air 21 07/10/19 05:53 Room Air 07/10/19 04:00 97.0 78 20 106/60 (75) 100 07/10/19 00:00 97.0 79 18 150/95 (113) 98 07/09/19 21:00 Room Air 07/09/19 20:51 85 121/74 07/09/19 20:00 97.5 85 16 121/74 (90) 95 07/09/19 16:00 97.2 87 20 112/63 (79) Intake and Output 07/09/19 07/10/19 19:00 07:00 Intake Total 236 ml Balance 236 ml Intake Oral 236 ml # Voids 2 2 Height (Feet): 5 Height (Inches): 8.00 Weight (Pounds): 129 Objective General Appearance: WD/WN, alert, confused, agitated, combative Neck: supple Cardiovascular: normal rate, regular rhythm Respiratory/Chest: chest wall non-tender, lungs clear, normal breath sounds, no respiratory distress, no accessory muscle use Abdomen: normal bowel sounds, non tender, soft, no organomegaly, no mass Edema: no edema noted Arm (L), no edema noted Arm (R), no edema noted Leg (L), no edema noted Leg (R), no edema noted Pedal (L), no edema noted Pedal (R), no edema noted 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
--- NOTE | 2019-07-10 15:13 | NUR ---
NURSE NOTES: Patient's change in behavior, calm, not agitated and not trying to climb out of bed. Observed 4 hours without restrains application and patient is still calm and follows command, knows how to use call light and ask for help. Patient's able to be discharged bilateral wrists restraints. Will continue to monitor closely.
[2019-07-10 16:00] VITALS: BP 118/67
--- NOTE | 2019-07-10 19:19 | NUR ---
HAND-OFF: Report given to SUAD Chung. Patient stable, plan of care endorsed.
--- NOTE | 2019-07-10 19:21 | NUR ---
NURSE NOTES: Nurse report given by SUAD Jimenez. Patient's awake in bed, resting in semi fowlers, confused, AO x 1, indonesian speaking only. no s/s of distress or SOB. Bed low and locked, call light within reach, side rails x3, bed alarm is on zone 2. IV is saline locked, patent and asymptomatic, secured with kerlix. Will continue to monitor closely. Positioned myself to chart directly in front of pt room and informed my DENTAL OFFICE ASSISTANT Dash to help watch patient when I am unavailable. Monitoring closely as pt is a high fall risk
[2019-07-10 20:00] VITALS: BP 143/81
[2019-07-10] MEDS: Atorvastatin 20mg tab ORAL SCH (21:05)
--- NOTE | 2019-07-10 23:00 | Progress Note ---
DATE: 07/10/2019 NOTE: INCOMPLETE DICTATION CARDIOLOGY PROGRESS NOTE SUBJECTIVE: The patient's discharge was canceled due to his agitation and uncooperativeness at times. [facility] could not accept him with restraints. OBJECTIVE: VITAL SIGNS: Blood pressure 132/75, pulse 80, and respirations 20. Afebrile. Monitored rhythm, atrial fibrillation, rate controlled. LUNGS: Good breath sounds. No wheezing. CARDIAC: Irregularly irregular rhythm. Normal S1, S2. A 1/6 systolic apical murmur. ABDOMEN: Soft. EXTREMITIES: No edema. LABORATORY DATA: No new laboratories today. IMPRESSION: Non ST elevation myocardial infarction Atrial fibrillation, rate controlled Pulmonary Hypertension Acute on chronic diastolic CHF Metabolic encephalopathy PLAN: Full anti-coagulation Maintain beta blockade Monitor volume status - diuresis as needed Behavioral therapy - DC plan to SNF Joshua Campbell M.D. DR: PIEDAD JOB#: [id number] CC: JEREMIAH
[2019-07-11] VITALS: BP 123/70
--- NOTE | 2019-07-11 02:00 | NUR ---
NURSE NOTES: Pt observed trying to climb out of bed. Pt is confused, he begins to put legs over the side rails. Bed alarm on to zone 2 and I was stationed outside the room to prevent falls, fall precautions in place, bed rails x3, room close to nursing station, yellow gown and socks, fall sign in front of room and armband on. In bed, lowest locked position and bed alarm on zone 2 for increased sensitivity and stationed in front of pt room to prevent falls.
[2019-07-11] MEDS: Haloperidol 5mg/ml Inj IM PRN (03:00)
[2019-07-11 04:00] VITALS: BP 109/93
[2019-07-11] MEDS: NovoLOG Insulin Flexpen SUBQ SCH ×2 (05:58→11:30)
--- NOTE | 2019-07-11 07:12 | NUR ---
HAND-OFF: Report given to SUAD Franklin. Endorsed that pt is a high fall risk and was trying to get out of bed, puts legs over siderails. I placed bed alarm on to zone 2 and had to closely monitor pt by charting beside his room within visibility
--- NOTE | 2019-07-11 07:20 | NUR ---
NURSE NOTES: pt, in bed resting, per report he had been very agitated during the night but was given Haldol earlier. 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 Bed is in lowest position, call light within reach, side rails up x2, bed alarm on. Will continue to monitor pt, pt will go to [facility] once DC.
--- NOTE | 2019-07-11 07:55 | General Progress Note ---
Assessment/Plan Problem List: (1) SOB (shortness of breath) ICD Codes: R06.02 - Shortness of breath SNOMED: 168576826 (2) AMI (acute myocardial infarction) ICD Codes: I21.9 - Acute myocardial infarction, unspecified SNOMED: 77486754 (3) CVA (cerebral vascular accident) ICD Codes: I63.9 - Cerebral infarction, unspecified SNOMED: 863436613 (4) Elevated troponin ICD Codes: R79.89 - Other specified abnormal findings of blood chemistry SNOMED: 651375447, 836652883, 812957043 (5) Respiratory distress ICD Codes: R06.03 - Acute respiratory distress SNOMED: 022565252 (6) Paroxysmal A-fib ICD Codes: I48.0 - Paroxysmal atrial fibrillation SNOMED: 885829218 Status: stable Assessment/Plan: stable. cont current rx antiplt rx cont bp meds psych rx psych follow up dvt/stress ulcer prophylaxis resp care o2 Follow-up repeat chest x-ray. Discharge planning in process. Try to DC restraints. Subjective ROS Limited/Unobtainable: No Constitutional: Reports: malaise, weakness HEENT: Reports: no symptoms Cardiovascular: Reports: no symptoms Respiratory: Reports: no symptoms Gastrointestinal/Abdominal: Reports: no symptoms Genitourinary: Reports: no symptoms Neurologic/Psychiatric: Reports: anxiety Endocrine: Reports: no symptoms Hematologic/Lymphatic: Reports: no symptoms Allergies: Coded Allergies: No Known Allergies (Unverified , 07/02/19) All Systems: reviewed and negative except above Subjective no events. less agitated, no cp/sob. compliant with meds. still with episodes of anxiety. no fever or chills. d/w RN Objective Last 24 Hour Vital Signs Date Time Temp Pulse Resp B/P (MAP) Pulse Ox O2 Delivery O2 Flow Rate FiO2 07/11/19 04:00 97.8 71 18 109/93 (98) 96 07/11/19 00:00 98.0 73 17 123/70 (87) 96 07/10/19 21:05 74 143/81 07/10/19 21:00 Room Air 07/10/19 20:00 97.2 74 20 143/81 (101) 99 07/10/19 16:00 97.6 76 20 118/67 (84) 95 07/10/19 12:00 97.7 80 20 132/75 (94) 95 07/10/19 09:00 Room Air 07/10/19 08:57 76 143/79 07/10/19 08:57 76 143/79 07/10/19 08:00 97.7 76 20 143/79 (100) 97 Intake and Output 07/10/19 07/11/19 19:00 07:00 Intake Total 400 ml 360 ml Output Total 800 ml Balance -400 ml 360 ml Intake Oral 400 ml 360 ml Output Urine Total 800 ml # Voids 2 3 Height (Feet): 5 Height (Inches): 8.00 Weight (Pounds): 129 Objective General Appearance: WD/WN, alert, confused, agitated, combative Neck: supple Cardiovascular: normal rate, regular rhythm Respiratory/Chest: chest wall non-tender, lungs clear, normal breath sounds, no respiratory distress, no accessory muscle use Abdomen: normal bowel sounds, non tender, soft, no organomegaly, no mass Edema: no edema noted Arm (L), no edema noted Arm (R), no edema noted Leg (L), no edema noted Leg (R), no edema noted Pedal (L), no edema noted Pedal (R), no edema noted Generalized Neurologic: phlebotomy manager II-XII grossly normal, alert, responsive, disoriented Bj Brunson MD Jul 11, 2019 07:55
[2019-07-11 08:00] VITALS: BP 131/83
[2019-07-11] MEDS: Hydrocortisone 1% Cr TOPIC SCH (09:00)
--- NOTE | 2019-07-11 10:43 | NUR ---
*-*DISCHARGE PLANNING*-* PATIENT HAS BEEN REFERRED BACK TO: [facility] P: [phone] F: [phone] Addendum: 07/11/19 at 1051 by SUSANNA ESTEVEZ CM DISREGARD NOTE ABOVE
--- NOTE | 2019-07-11 10:51 | NUR ---
*-*DISCHARGE PLANNING*-* PATIENT HAS BEEN REF[facility]ED TO: [facility] P: [phone] F: [phone] [facility]EPTANCE
--- NOTE | 2019-07-11 10:53 | NUR ---
*-*DISCHARGE PLANNED*-* PATIENT HAS BEEN ACCEPTED AND WILL BE DISCHARGED TO: [facility] P: [phone] FOR NURSE TO NURSE REPORT ROOM# 20.A SK[facility]ED [facility] SET DIRECTOR OF PEOPLE FOR 12:30PM
[2019-07-11] MEDS: OLANZapine 2.5mg tab ORAL SCH (10:59)
[2019-07-11] MEDS: Zinc Sulfate 220mg cap ORAL SCH (10:59)
[2019-07-11] MEDS: Metoprolol Tartrate 50mg tab ORAL SCH (11:00)
[2019-07-11] MEDS: Aspirin EC 81mg tab ORAL SCH (11:00)
[2019-07-11] MEDS: Docusate 100mg cap ORAL SCH (11:00)
[2019-07-11] MEDS: Eliquis 2.5mg tablet ORAL SCH (11:00)
[2019-07-11] MEDS: Miralax 17gm pkt ORAL SCH (11:00)
[2019-07-11] MEDS: Levemir Flexpen SUBQ SCH (11:06)
[2019-07-11 12:00] VITALS: BP 115/74
--- NOTE | 2019-07-11 13:40 | NUR ---
NURSE NOTES: Pt DC to [facility] , family was notified by nurse pt being DC today. Pt left in stable condition via ambulance. All belonging were giving to pt including cell ph and box printer. Pt was wearing eye glasses at time of DC. The rest of the belonging were inside belonging bag. Pt unable to signs for belonging sheet. All necessary DC paperwork was included inside of pt DC folder. IV was DC from pt before pt left to [facility], no bleeding was noted.
--- NOTE | 2019-07-11 14:53 | Diagnostic Imaging Report ---
Indication: Dyspnea Comparison: 07/02/2019 A single view chest radiograph was obtained. Findings: No definite infiltrate or pulmonary vascular congestion identified. The heart is normal size. The aorta is mildly enlarged consistent with atherosclerotic vascular disease. The bones are osteopenic. There are thoracic vertebral enthesophytes at multiple levels. Impression: No acute disease
--- NOTE | 2019-07-12 | Progress Note ---
DATE: 07/11/2019 SUBJECTIVE: The patient is doing much better. More interactive. Able to sit up and feed self. No behavior issues noted. MENTAL STATUS EXAMINATION: The patient is alert and oriented times self and place. Mood is neutral. Affect is flat. Thought process is concrete. Thought content, no suicidal or homicidal ideation. Cognition is impaired. Insight and judgment is impaired. ASSESSMENT: Stable. PLAN: 1. Continue current psychotropic medications. 2. Continue to follow and readjust the medication. Shaye Benitez M.D. DR: DOUGIE JOB#: [id number] CC:
--- NOTE | 2019-07-12 02:45 | Progress Note ---
DATE: 07/11/2019 CARDIOLOGY PROGRESS NOTE SUBJECTIVE: The patient has history of anxiety. Discussed with his . He took clonazepam regularly at home. The patient is more cooperative, has been having difficulty in the hospital because of his language barrier as well as the fact that family members are not able to visit due to the COVID-19 epidemic. OBJECTIVE: VITAL SIGNS: Blood pressure 109/93, pulse 71, respirations 18, and afebrile. LUNGS: Clear. CARDIAC: Irregular. Normal S1 and S2. ABDOMEN: Soft. EXTREMITIES: No edema. IMPRESSION: 1. Uiw-CA-[id number] myocardial infarction. 2. Atrial fibrillation, now rate controlled. 3. Permanent pacemaker. 4. Hypertensive heart disease. 5. 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 6. Situational anxiety. PLAN: 1. Continue current antihypertensives. 2. Maintain cardioembolic prophylaxis. 3. Cautious use of anti-platelet therapy. 4. [facility] 5. Discussed the care plan with prison staff at receiving facility. 6. Outpatient pacemaker interrogation to be arranged. Joshua Campbell M.D. DR: ROMY JOB#: [id number] CC:
== END 2019-07-11 13:30 | DRG 280 ==
LOC: EDBD 09:37 → EMR 09:56 → EDBEDREQSVC 10:11 → EDBEDREQ 10:11 → 2E 10:24 → EDBEDREQ 12:15 → 2E 14:52
DX: I21.4 Non-ST elevation (NSTEMI) myocardial infarction (principal); I50.33 Acute on chronic diastolic (congestive) heart failure; J18.9 Pneumonia, unspecified organism; G92 Toxic encephalopathy; I13.0 Hypertensive heart and chronic kidney disease with heart failure and stage 1 through stage 4 chronic kidney disease, or unspecified chronic kidney disease; E87.2 Acidosis; I69.351 Hemiplegia and hemiparesis following cerebral infarction affecting right dominant side; E11.65 Type 2 diabetes mellitus with hyperglycemia; E11.22 Type 2 diabetes mellitus with diabetic chronic kidney disease; I48.0 Paroxysmal atrial fibrillation; F03.90 Unspecified dementia, unspecified severity, without behavioral disturbance, psychotic disturbance, mood disturbance, and anxiety; E87.6 Hypokalemia; N28.9 Disorder of kidney and ureter, unspecified; N18.9 Chronic kidney disease, unspecified; F29 Unspecified psychosis not due to a substance or known physiological condition; R45.1 Restlessness and agitation; Y95 Nosocomial condition; E78.5 Hyperlipidemia, unspecified; F41.8 Other specified anxiety disorders; Z79.01 Long term (current) use of anticoagulants; Z95.0 Presence of cardiac pacemaker; Z98.890 Other specified postprocedural states
CPT/HCPCS: 36415; 71045; 80048; 80053; 80061; 81003; 82962; 83036; 83605; 83735; 83880; 84484; 85025; 86710; 87040; 87081; 93005; 93306; 94664; 96365; 96375; 96376; 99285; J1815; J8499; S5561